=== PATIENT | male | born 1995 | race Caucasian/White ===

== ENCOUNTER 2020-04-13 03:28 | Outpatient (REF) | payer OTHER, SELFPAY ==
[2020-04-13 05:33] LABS: SARS COV2 PCR INHOUSE NEGATIVE (Negative)
== END 2020-04-13 03:29 | disposition home or self-care (01) ==
LOC: HO.LAB 03:28
PROVIDERS: Visit Provider Internal Medicine
DX: Z20.828 Contact with and (suspected) exposure to other viral communicable diseases (principal)
CPT/HCPCS: 87635

== ENCOUNTER 2020-04-15 07:06 | Outpatient (REF) | payer OTHER, SELFPAY ==
[2020-04-15 07:33] LABS: COVID-19 Test Negative (Negative)
== END 2020-04-15 07:07 | disposition home or self-care (01) ==
LOC: HO.LAB 07:06
PROVIDERS: Visit Provider Internal Medicine
DX: Z20.828 Contact with and (suspected) exposure to other viral communicable diseases (principal)
CPT/HCPCS: 87635

== ENCOUNTER 2020-04-19 06:34 | Outpatient (REF) | payer OTHER, SELFPAY ==
[2020-04-19 06:57] LABS: COVID-19 Test Negative (Negative)
== END 2020-04-19 06:35 | disposition home or self-care (01) ==
LOC: HO.LAB 06:34
PROVIDERS: Visit Provider Internal Medicine
DX: Z20.828 Contact with and (suspected) exposure to other viral communicable diseases (principal)
CPT/HCPCS: 87635

== ENCOUNTER 2020-06-17 21:23 | Outpatient (REF) | payer OTHER, SELFPAY ==
--- NOTE | 2020-06-17 | XR_ITS ---
EXAMINATION: XR KNEE, RIGHT CLINICAL INFORMATION: Pain, history of dislocation. COMPARISON: None TECHNIQUE: Two views of the right knee. FINDINGS: Normal alignment. No fracture or dislocation. Joint spaces are maintained. No significant effusion. XR/XR knee RT 2V IMPRESSION: No evidence of acute osseous abnormality.
== END 2020-06-17 21:24 | disposition home or self-care (01) ==
LOC: HO.XRAY 21:23
PROVIDERS: PCP Internal Medicine; Visit Provider Nurse Practitioner Family
DX: M25.561 Pain in right knee (principal)
CPT/HCPCS: 73560

== ENCOUNTER 2020-07-16 02:38 | Outpatient (REF) | payer OTHER, SELFPAY ==
[2020-07-16 03:09] LABS: COVID-19 Test Negative (Negative); IDNOW Serial# 9DD0AD1C
== END 2020-07-16 02:39 | disposition home or self-care (01) ==
LOC: HO.EMPCOV 02:38
PROVIDERS: PCP Internal Medicine; Visit Provider Internal Medicine
DX: Z20.822 Contact with and (suspected) exposure to COVID-19 (principal)
CPT/HCPCS: 36415; 87635

== ENCOUNTER 2020-07-24 10:33 | Outpatient (REF) | payer OTHER, SELFPAY ==
[2020-07-24 10:50] LABS: COVID-19 Test Negative (Negative)
== END 2020-07-24 10:34 | disposition home or self-care (01) ==
LOC: HO.EMPCOV 10:33
PROVIDERS: Visit Provider Internal Medicine
DX: Z20.822 Contact with and (suspected) exposure to COVID-19 (principal)
CPT/HCPCS: 36415; 87635; C9803

== ENCOUNTER 2020-08-26 10:57 | Outpatient (REF) | payer OTHER, SELFPAY ==
[2020-08-26 11:29] LABS: COVID-19 Test Negative (Negative); IDNOW Serial# 9DD0AD1C
== END 2020-08-26 10:58 | disposition home or self-care (01) ==
LOC: HO.LAB 10:57
PROVIDERS: PCP Internal Medicine; Visit Provider Internal Medicine
DX: Z20.822 Contact with and (suspected) exposure to COVID-19 (principal)
CPT/HCPCS: 36415; 87635

== ENCOUNTER 2020-09-05 13:31 | Outpatient (REF) | payer OTHER, SELFPAY ==
[2020-09-05 14:13] LABS: MANUAL DIFF FLAG NO
[2020-09-05 14:19] LABS: Basophils Percent Auto 0.3 % (0-2); Eosinophils Absolute Auto 0.1 X10*3/uL (0.0-0.4); Eosinophils Percent Auto 1.2 % (0-4); Hematocrit 45.7 % (42-52); Hemoglobin 15.6 g/dl (14.0-18.0); Imm Gran Abs Auto 0.07 X10*3/uL (0.00-0.03); Lymphocytes Absolute Auto 2.1 X10*3/uL (1.2-4.9); Lymphocytes Percent Auto 30.9 % (20-40); Mean Corpuscular HGB Conc 34.1 g/dl (31.0-36.0); Mean Corpuscular Hemoglobin 27.8 pg (27.0-33.0); Mean Corpuscular Volume 81.3 fL (80-98); Mean Platelet Volume 10.1 fL (9.4-12.4); Monocytes Absolute Auto 0.5 X10*3/uL (0.1-1.2); Monocytes Percent Auto 7.5 % (2-11); Neutrophils Absolute Auto 4.1 X10*3/uL (2.0-8.3); Neutrophils Percent Auto 59.1 % (45-73); Platelet Count 199 X10*3/uL (160-400); Red Blood Count 5.62 X10*6/uL (4.60-5.80); Red Cell Distribution Width 12.8 % (11.0-16.0); White Blood Count 6.9 X10*3/uL (4.8-10.8)
[2020-09-05 15:05] LABS: Alanine Aminotransferase 59 U/L (0-40); Albumin Level 4.9 g/dL (3.5-5.0); Alkaline Phosphatase 75 U/L (39-117); Anion Gap 13 (12-20); Aspartate Amino Transferase 33 U/L (5-37); Bilirubin Total 0.9 mg/dL (0.0-1.0); Blood Urea Nitrogen 11 mg/dL (9-16); Calcium 9.7 mg/dL (8.4-10.2); Carbon Dioxide 27 mmol/L (22-29); Chloride 103 mmol/L (96-108); Cholesterol 153 mg/dL; Estimated Glomerular Filt Rate > 60; Glucose Fasting 83 mg/dL (60-99); HDL Cholesterol 24 mg/dL; Potassium 4.2 mmol/L (3.3-5.1); Sodium 139 mmol/L (135-145); Total Protein 7.5 g/dL (6.5-8.0); Triglycerides 547 mg/dL
== END 2020-09-05 13:32 | disposition home or self-care (01) ==
LOC: HO.LAB 13:31
PROVIDERS: PCP Internal Medicine; Visit Provider Internal Medicine
DX: Z00.00 Encounter for general adult medical examination without abnormal findings (principal); Z13.220 Encounter for screening for lipoid disorders
CPT/HCPCS: 36415; 80053; 80061; 85025

== ENCOUNTER 2020-09-06 13:59 | Outpatient (REF) | payer OTHER, SELFPAY ==
--- NOTE | ~2020-09-06 | CT_ITS ---
EXAMINATION: CT HEAD WITHOUT CONTRAST CLINICAL INFORMATION: Severely headache. COMPARISON: None TECHNIQUE: Contiguous axial imaging was performed from the skull base to vertex without intravenous administration of contrast. This CT examination was performed using dose optimization techniques as appropriate, variously including the following: *Automated exposure control *Adjustment of mA and/or kV according to patient size (this includes techniques or standardized protocols for targeted exams where dose is matched to indication/reason for exam; i.e. extremities or head) *Use of iterative reconstruction technique DLP: 892 mGy-cm FINDINGS: There is no evidence of acute intracranial hemorrhage or territorial infarction. No abnormal mass effect or midline shift is seen. Nguyen to white matter differentiation is well preserved. No extra-axial fluid collections are identified. The ventricles are normal in size. There is no abnormal attenuation within the brain parenchyma. The osseous structures and soft tissues are normal. The mastoid air cells and visualized portions of the paranasal sinuses are well aerated. CT/CT head/brain wo con IMPRESSION: No acute intracranial process seen.
== END 2020-09-06 14:00 | disposition home or self-care (01) ==
LOC: HO.CT 13:59
PROVIDERS: Visit Provider Internal Medicine
DX: R51.9 Headache, unspecified (principal)
CPT/HCPCS: 70450

== ENCOUNTER 2020-12-09 07:57 | Outpatient (REF) | payer OTHER, SELFPAY ==
[2020-12-09 08:46] LABS: Alanine Aminotransferase 47 U/L (0-40); Albumin Level 4.9 g/dL (3.5-5.0); Alkaline Phosphatase 52 U/L (39-117); Anion Gap 12 (12-20); Aspartate Amino Transferase 29 U/L (5-37); Bilirubin Total 0.8 mg/dL (0.0-1.0); Blood Urea Nitrogen 14 mg/dL (9-16); Calcium 10.1 mg/dL (8.4-10.2); Carbon Dioxide 28 mmol/L (22-29); Chloride 105 mmol/L (96-108); Cholesterol 165 mg/dL; Estimated Glomerular Filt Rate > 60; Glucose Fasting 110 mg/dL (60-99); HDL Cholesterol 26 mg/dL; LDL Cholesterol Calculated 105 mg/dl; Potassium 4.7 mmol/L (3.3-5.1); Sodium 140 mmol/L (135-145); Total Protein 7.2 g/dL (6.5-8.0); Triglycerides 174 mg/dL
[2020-12-09 09:07] LABS: Thyroid Stimulating Hormone 1.39 uIU/mL (0.32-4.0)
== END 2020-12-09 07:58 | disposition home or self-care (01) ==
LOC: HO.LAB 07:57
PROVIDERS: PCP Internal Medicine; Visit Provider Internal Medicine
DX: E78.2 Mixed hyperlipidemia (principal)
CPT/HCPCS: 36415; 80053; 80061; 84443

== ENCOUNTER 2021-10-27 18:33 | Outpatient (REF) | payer OTHER, SELFPAY ==
[2021-10-27 19:23] LABS: MANUAL DIFF FLAG NO
[2021-10-27 19:31] LABS: Basophils Percent Auto 0.5 % (0-2); Eosinophils Absolute Auto 0.1 X10*3/uL (0.0-0.4); Hematocrit 46.7 % (42.0-52.0); Hemoglobin 15.8 g/dl (14.0-18.0); Imm Gran Abs Auto 0.01 X10*3/uL (0.00-0.03); Imm Gran Pct Auto 0.2 % (0.0-0.4); Lymphocytes Absolute Auto 2.3 X10*3/uL (1.2-4.9); Mean Corpuscular HGB Conc 33.8 g/dl (31.0-36.0); Mean Corpuscular Hemoglobin 27.8 pg (27.0-33.0); Mean Corpuscular Volume 82.1 fL (80.0-98.0); Mean Platelet Volume 10.5 fL (9.4-12.4); Monocytes Absolute Auto 0.4 X10*3/uL (0.1-1.2); Monocytes Percent Auto 5.9 % (2-11); Neutrophils Absolute Auto 3.5 x10*3/uL (2.0-8.3); Neutrophils Percent Auto 55.4 % (45-73); Platelet Count 182 X10*3/uL (160-400); Red Blood Count 5.69 X10*6/uL (4.60-5.80); Red Cell Distribution Width 12.7 % (11.0-16.0); White Blood Count 6.2 X10*3/uL (4.8-10.8)
[2021-10-27 19:50] LABS: Alanine Aminotransferase 46 U/L (0-40); Alkaline Phosphatase 61 U/L (39-117); Anion Gap 14 (12-20); Aspartate Amino Transferase 26 U/L (5-37); Bilirubin Direct 0.3 mg/dL (0.0-0.5); Bilirubin Total 0.9 mg/dL (0.0-1.0); Blood Urea Nitrogen 8 mg/dL (9-16); Calcium 10.5 mg/dL (8.4-10.2); Carbon Dioxide 28 mmol/L (22-29); Chloride 103 mmol/L (96-108); Cholesterol 160 mg/dL; Estimated Glomerular Filt Rate > 60; Glucose Random 92 mg/dL (60-115); HDL Cholesterol 29 mg/dL; LDL Cholesterol Calculated 91 mg/dl; Potassium 4.3 mmol/L (3.3-5.1); Sodium 141 mmol/L (135-145); Total Protein 7.7 g/dL (6.5-8.0); Triglycerides 204 mg/dL
[2021-10-27 20:10] LABS: Thyroid Stimulating Hormone 1.48 uIU/mL (0.32-4.0); Vitamin D 25-OH Total 28.2 ng/mL (>30)
[2021-10-27 20:13] LABS: Vitamin B12 677 pg/mL (200-900)
[2021-10-28 06:51] LABS: Estimated Average Glucose 100 mg/dL; Hemoglobin A1c % 5.1 %
== END 2021-10-27 18:34 | disposition home or self-care (01) ==
LOC: HO.LAB 18:33
PROVIDERS: Visit Provider Family Medicine
DX: F41.9 Anxiety disorder, unspecified (principal)
CPT/HCPCS: 36415; 80053; 80061; 82248; 82306; 82607; 83036; 84443; 85025

== ENCOUNTER 2021-11-08 15:33 | Outpatient (REF) | payer OTHER, SELFPAY ==
[2021-11-08 16:23] LABS: COVID-19 Test Negative (Negative)
== END 2021-11-08 15:34 | disposition home or self-care (01) ==
LOC: HO.LAB 15:33
PROVIDERS: PCP Internal Medicine; Visit Provider Physician Assistant
DX: Z20.822 Contact with and (suspected) exposure to COVID-19 (principal)
CPT/HCPCS: 87635

== ENCOUNTER 2022-05-27 16:53 | Inpatient (IN) | payer OTHER, SELFPAY ==
--- NOTE | ~2022-05-27 | CT_ITS ---
EXAMINATION: CT ABDOMEN AND PELVIS WITH CONTRAST CLINICAL INFORMATION: Epigastric pain COMPARISON: None TECHNIQUE: Multidetector volumetric images were obtained from the superior aspect of the liver through the pubic symphysis following administration 85 mL of Omnipaque 350 intravenous contrast. Sagittal and coronal reformatted images were obtained on the technologist's workstation. Oral contrast: No This CT examination was performed using dose optimization techniques as appropriate, variously including the following: *Automated exposure control *Adjustment of mA and/or kV according to patient size (this includes techniques or standardized protocols for targeted exams where dose is matched to indication/reason for exam; i.e. extremities or head) *Use of iterative reconstruction technique DLP: 827 mGy-cm FINDINGS: LUNG BASES: Atelectasis is present at both lung bases as well as in the lingula. Tiny punctate calcified granuloma seen at the right lung base. LIVER, GALLBLADDER, AND BILIARY TREE: The liver is enlarged measuring 20 cm in cephalocaudad dimension and demonstrates decreased attenuation consistent with hepatic steatosis. No focal hepatic lesion or biliary ductal dilatation is present. The gallbladder is unremarkable with no evidence of radiopaque gallstones, gallbladder wall thickening, or obvious pericholecystic inflammatory changes. PANCREAS: Unremarkable. SPLEEN: There is splenomegaly at 13.6 cm. ADRENAL GLANDS: Unremarkable. KIDNEYS AND URETERS: The kidneys are normal in size, shape, and attenuation. No hydronephrosis, hydroureter, or calculi seen. No perinephric stranding. BLADDER: Unremarkable. GASTROINTESTINAL TRACT: The small and large bowel are unremarkable aside from colonic diverticula without diverticulitis. The appendix is unremarkable. ABDOMINAL WALL: No significant hernia is appreciated. LYMPH NODES: Shotty retroperitoneal lymph nodes are seen but there is no adenopathy. VASCULAR: Unremarkable. PELVIC VISCERA: The prostate and seminal vesicles are unremarkable. OSSEOUS STRUCTURES: Unremarkable. CT/CT abdomen pelvis w IV con IMPRESSION: 1. An etiology for the patient's epigastric pain has not been found. 2. Incidental note made of an enlarged fatty liver and mild splenomegaly. Fleischner guidelines were followed.
--- NOTE | 2022-05-27 16:57 | ED.GENADULT ---
HPI - General Adult General Chief complaint: Abdominal Pain Stated complaint: vomiting abd pain Time Seen by Provider: 05/27/22 16:57 Source: patient Mode of arrival: ambulatory Limitations: no limitations History of Present Illness HPI narrative: 27-year-old male history of hypertension not on medication presenting to the emergency department complaints of sudden onset nausea, vomiting, diarrhea, abdominal discomfort, headache since yesterday p.m.. Patient tells me symptoms started suddenly, he has not been able to tolerate anything by mouth, he tells me every time he eats or drinks he has either an nausea, vomiting or diarrhea. Reports he is having episodes of diarrhea every 1-2 hours. Tells me he is having abdominal discomfort in epigastric region, he describes it as an emptiness. Also complaining of a diffuse headache which feels like his typical, patient tells me he has history of headaches and takes daily medications for them. Nonradiating. Tells me his son at home was sick with similar symptoms about a week ago. Patient has no history of abdominal surgeries. 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 Patient denies chest pain, shortness of breath, fevers, chills, weakness, dizziness, vision changes. Patient denies head trauma, not on any blood thinners. NIHSS0 Related Data Allergies Allergy/AdvReac Type Severity Reaction Status Date / Time Unable to Assess Allergy Unverified 05/27/22 16:57 Review of Systems Review of Systems: Constitutional : No Weight loss, No Fever, No Chills ENT/Mouth :? No sore throat, No Rhinorrhea Eyes: No Swelling, No Redness Cardiovascular : No Chest Pain, No SOB, NoEdema Respiratory : No Cough, No Sputum, No Wheezing Gastrointestinal : Positive Nausea, Positive Vomiting, positive Diarrhea, positive abdominal Pain, No Hematochezia, No Melena Genitourinary : No Dysuria, No Urinary Frequency, No Hematuria, No Urgency Musculoskeletal : No joint pain, No Myalgias, No Joint Swelling Skin : No Skin Lesions, No rash Neuro : No Weakness, No Numbness, No Dizziness, No Headache Psych : No Anxiety/Panic, No Depression All other systems reviewed and are negative. Yes all other systems are reviewed and are negative [facility] Past Medical History Attestation statement: The following information was validated with the patient. Source: old records reviewed and nursing notes reviewed Social History Social History Advance Directives: No Advance Directives Information Provided: No Physical Exam ED Vital Signs: Vital Signs - 24 hr 05/27/22 17:02 05/27/22 18:58 05/27/22 20:07 Temperature 98.3 F 98.1 F Pulse Rate 84 82 82 Respiratory Rate 16 20 Blood Pressure 144/76 H 120/71 116/67 Pulse Oximetry 97 95 Oxygen Delivery Method Room Air Room Air 05/27/22 20:08 05/27/22 20:08 05/27/22 21:20 Temperature Pulse Rate 86 103 H 110 H Respiratory Rate 20 Blood Pressure 118/78 103/62 114/69 Pulse Oximetry 97 Oxygen Delivery Method Room Air BMI result Body Mass Index 30.7 Appearance: Alert.? Oriented X3.? No acute distress.? Head: Normocephalic, atraumatic, no step-offs or deformities Eyes: Pupils equal, round and reactive to light.? ENT: Pharynx normal.? Neck: Normal inspection.? Neck supple.? CVS: Normal heart rate and rhythm.? Pulses normal.? Respiratory: No respiratory distress.? Breath sounds normal.? Abdomen: Soft and nontender.? Skin: Skin warm and dry.? Normal skin color.? Normal skin turgor.? Extremities: No lower extremity edema.? No calf ttp. 5/5 strength to bilateral upper and lower extremities Neuro: Oriented X 3.? No motor deficit.? No sensory deficit. CN 2-12 intact. Ambulating w/ steady gait w/ normal coordination. Course Reevaluation(s) Reevaluation #1: Patient's CBC revealing an elevated hemoglobin and hematocrit with an MCV of 82.3, I suspect hemoconcentration is secondary to poor p.o. intake/dehydration. Patient with neutrophil predominance. Chemistry with no acute electrolyte abnormalities requiring intervention. Patient's total bilirubin noted to be 1.9 however patient not tender to palpation of abdomen on exam, likely secondary to acute viral infection. Pending flu/COVID/RSV. Will hydrate patient with at least 2-3 L of IV fluids. Patient tried to get up and got very dizzy had to sit down. Not tolerating PO. Multiple episodes of diarrhea while in the department Time: 17:10 Reevaluation #2: Orthostatics vital signs w/ orthostatic dizziness. UA with elevated specific gravity and protein likely secondary to dehydration. No acute infection however. Patient is still not tolerating anything by mouth. Despite fluids, Zofran, loperamide. He has been having episodes of diarrhea while in the department, feeling weak, dehydrated. Patient has already received 3 L of normal saline. Still feeling dizzy with positional changes. Flu/COVID/RSV pending. Time: 20:56 Reevaluation #3: Influenza negative. Pending CT of the abdomen and pelvis. Patient is still not tolerating p.o.. Will admit patient to hospital for further intervention and treatment likely dehydration from viral infection. Time: 21:43 Medications Administered Discontinued Medications Generic Name Dose Route Start Last Admin Trade Name Freq PRN Reason Stop Dose Admin Sodium Chloride 1,000 mls @ 999 mls/hr 05/27/22 17:00 05/27/22 18:13 Ns IV 05/27/22 18:00 Infused .Q1H1M EMMANUEL Infusion Sodium Chloride 1,000 mls @ 999 mls/hr 05/27/22 17:30 05/27/22 18:12 Ns IV 05/27/22 18:30 999 mls/hr .Q1H1M EMMANUEL Administration Sodium Chloride 1,000 mls @ 999 mls/hr 05/27/22 19:30 05/27/22 20:52 Ns IV 05/27/22 20:30 999 mls/hr .Q1H1M EMMANUEL Administration Iohexol 100 ml 05/27/22 21:38 05/27/22 21:38 Iohexol 350 Mg/Ml 100 Ml Infus..Btl IV 05/27/22 21:39 85 ml ONCE ONE Administration Ketorolac Tromethamine 30 mg 05/27/22 16:57 05/27/22 17:18 Ketorolac Tromethamine 15 Mg/Ml Vial IM 05/27/22 16:58 30 mg ONCE ONE Administration Loperamide HCl 2 mg 05/27/22 17:10 05/27/22 17:18 Loperamide Hcl 2 Mg Capsule PO 05/27/22 17:11 2 mg ONCE ONE Administration Morphine Sulfate 2 mg 05/27/22 20:53 05/27/22 21:21 Morphine Sulfate 2 Mg/Ml Cartridge IVPUSH 05/27/22 20:54 2 mg ONCE ONE Administration Protocol Ondansetron HCl 4 mg 05/27/22 17:01 05/27/22 17:18 Ondansetron Hcl 4 Mg/2 Ml Vial IVPUSH 05/27/22 17:02 4 mg ONCE ONE Administration Medical Decision Making Medical Decision Making [facility] Narrative: 1700 27-year-old male history of hypertension presents with flu-like symptoms since last night a p.m.. Reports nausea, vomiting, diarrhea, abdominal discomfort and headache. Healthcare worker. Physical examination benign. Patient noted to have slightly elevated blood pressure however likely secondary stress/not feeling well. Will repeat blood pressure added later time when patient is no longer having pain in his settles in. NIHSS-0 Concerned for viral infection. No signs of acute abdomen on exam unlikely pancreatitis, cholecystitis, appendicitis, diverticulitis. Headache likely typical headache unlikely intracranial hemorrhage, posterior stroke, meningitis. Diarrhea likely viral, I do not suspect Clostridium difficile. [facility] stroke posterior stroke Plan at this time is basic labs, urine, flu/COVID/RSV.. Will give Imodium for diarrhea. Zofran for nausea vomiting. And I will give Toradol for pain. Critical Care Time Critical Care Time Critical Care Time: No Discharge Plan Discharge Clinical Impression: Acute epigastric pain, Nausea & vomiting, Diarrhea, Acute dehydration, Poor appetite Patient Disposition: Admitted As Inpatient
[2022-05-27 17:02] VITALS: BP 144/76; PULSE 84; RESP 16; TEMP 36.8; O2SAT 97; BMI 30.7
[2022-05-27 17:15] LABS: MANUAL DIFF FLAG NO
[2022-05-27 17:17] LABS: Basophils Percent Auto 0.4 % (0-2); Eosinophils Percent Auto 0.4 % (0-4); Hematocrit 52.6 % (42.0-52.0); Hemoglobin 18.1 g/dl (14.0-18.0); Imm Gran Abs Auto 0.02 X10*3/uL (0.00-0.03); Imm Gran Pct Auto 0.2 % (0.0-0.4); Lymphocytes Absolute Auto 0.8 X10*3/uL (1.2-4.9); Lymphocytes Percent Auto 9.3 % (20-40); Mean Corpuscular HGB Conc 34.4 g/dl (31.0-36.0); Mean Corpuscular Hemoglobin 28.3 pg (27.0-33.0); Mean Corpuscular Volume 82.3 fL (80.0-98.0); Mean Platelet Volume 10.1 fL (9.4-12.4); Monocytes Absolute Auto 0.6 X10*3/uL (0.1-1.2); Monocytes Percent Auto 6.9 % (2-11); Neutrophils Absolute Auto 6.7 x10*3/uL (2.0-8.3); Neutrophils Percent Auto 82.8 % (45-73); Platelet Count 178 X10*3/uL (160-400); Red Blood Count 6.39 X10*6/uL (4.60-5.80); White Blood Count 8.1 X10*3/uL (4.8-10.8)
[2022-05-27] MEDS: 0.9 % Sodium Chloride 1,000 ML 999 ML IV ×3 (17:18→20:52)
[2022-05-27] MEDS: Loperamide HCl 2 MG CAPSULE PO (17:18)
[2022-05-27] MEDS: ondansetron HCL 4 MG/2 ML VIAL IVPUSH (17:18)
[2022-05-27] MEDS: Ketorolac Tromethamine 15 MG/ML VIAL 30 MG IM (17:18)
[2022-05-27 17:32] LABS: Alanine Aminotransferase 65 U/L (0-40); Albumin Level 5.4 g/dL (3.5-5.0); Alkaline Phosphatase 73 U/L (39-117); Anion Gap 16 (12-20); Aspartate Amino Transferase 25 U/L (5-37); Bilirubin Total 1.9 mg/dL (0.0-1.0); Blood Urea Nitrogen 14 mg/dL (9-16); Calcium 10.3 mg/dL (8.4-10.2); Carbon Dioxide 27 mmol/L (22-29); Chloride 103 mmol/L (96-108); Creatinine Clr Calc Pharmacy 115.1; Estimated Glomerular Filt Rate > 60; Glucose Random 108 mg/dL (60-115); Lipase 14 U/L (8-78); Magnesium 1.9 mg/dL (1.6-2.6); Potassium 4.1 mmol/L (3.3-5.1); Sodium 142 mmol/L (135-145); Total Protein 8.2 g/dL (6.5-8.0)
[2022-05-27 18:19] LABS: Appearance Urine Clear; Color Urine Dark Yellow; Glucose Urine UA Negative (Negative); Leukocyte Esterase Urine Trace (Negative); Nitrite Urine Negative (Negative); PH 5.5 (5.0-9.0); Specific Gravity - Urine >= 1.030 (1.005-1.025); UMIC TRIGGER UACC YES; Urine Blood Negative (Negative); Urine Ketones Trace mg/dL (Negative); Urine Protein 30 (1+) mg/dL (Neg-Trace)
[2022-05-27 18:21] LABS: Bacteria Urine None Seen (None Seen); Squamous Epithelial Cell Urine 0-2 /HPF (0-2); WBC Urine 0-5 /HPF (0-5)
--- NOTE | 2022-05-27 18:54 | PC.NURSE ---
Addendum entered by Love Blanchard RN 05/27/22 23:06: report given to DIANDRA Casiano at overflow Addendum entered by Love Blanchard RN 05/27/22 19:00: pt is alert and oriented. breathing equally unlabored c/o abd pain 5/10 no signs of acute distress notice Original Note: report received from DIANDRA Bonds
[2022-05-27 18:58] VITALS: BP 120/71; PULSE 82; RESP 20; TEMP 36.7; O2SAT 95
[2022-05-27 20:07] VITALS: BP 116/67; PULSE 82
[2022-05-27 20:08] VITALS: BP 103/62; BP 118/78; PULSE 103; PULSE 86
--- NOTE | 2022-05-27 20:52 | PC.NURSE ---
medicated per Aug. Notified DIANDRA Aleman
--- NOTE | 2022-05-27 20:55 | ECG_ITS ---
Test Reason : ABD PAIN Blood Pressure : / mmHG Vent. Rate : 079 BPM Atrial Rate : 079 BPM P-R Int : 168 ms QRS Dur : 086 ms QT Int : 366 ms P-R-T Axes : 045 023 018 degrees QTc Int : 419 ms Normal sinus rhythm Nonspecific T wave abnormality Abnormal ECG No previous ECGs available Referred By: Alejandro Sanchez Electronically Signed By:LETTY HONG MD
[2022-05-27 21:16] LABS: Influenza A PCR NEGATIVE (Negative); Influenza B PCR NEGATIVE (Negative); Resp Syncy Virus RNA Qual PCR NEGATIVE (Negative); SARS COV2 PCR INHOUSE NEGATIVE (Negative)
[2022-05-27 21:20] VITALS: BP 114/69; PULSE 110; RESP 20; O2SAT 97
[2022-05-27] MEDS: Morphine Sulfate 2 MG/ML CARTRIDGE IVPUSH (21:21)
[2022-05-27] MEDS: iohexoL 350 MG/ML 100 ML INFUS..BTL IV (21:38)
--- NOTE | 2022-05-27 22:14 | PHA.MEDREC ---
med rec complete, only OTC nexium Pharmacy Consult ? Medication Reconciliation Pharmacy has completed the medication reconciliation.
--- NOTE | 2022-05-27 22:49 | PC.NURSE ---
pt a&o, no increase of sob or chest pain. Report given to Overflow DIANDRA Guevara. Notified DIANDRA Aleman
--- NOTE | 2022-05-27 23:26 | P.HPHOSP_ITS ---
History of Present Illness Date of Service: 05/27/22 Chief Complaint: Abdominal pain, nausea/vomiting This is a 27-year-old male with no pertinent past medical history and not on prescription medications who presents to the emergency department for evaluation of abdominal pain/nausea/vomiting. Patient states it started 24 hours prior to presentation. He had [place] cheese steak for lunch and patient's symptoms started around 20:00. He had multiple episodes of nonbloody emesis and nonbloody loose stools throughout 24 hours without any relieving factors. Also has been having generalized abdominal discomfort. No fever or chills. No history of similar complaints in the past. Does have history of gastroes ophageal reflux disease and takes Nexium but he is without worsening of his acid reflux during these episodes. No history of smoking or chewing marijuana, IV drug use. No alcohol use. 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 States he had 2 episodes of dizziness/lightheadedness when he tried to get up to vomit earlier in the day. No loss of consciousness. Unable to tolerate p.o. intake at home. No chest pain, palpitations, shortness of breath, changes in urinary habits In the emergency department, orthostatic vital signs noted to be positive Review of Systems Constitutional: Constitutional: Reports fatigue Cardiovascular: Cardiovascular: Reports no additional cardiovascular complaints Respiratory: Respiratory: Reports no additional respiratory complaints Gastrointestinal: Gastrointestinal: Reports GI cramping, Reports diarrhea, Reports loose stools, Reports nausea and Reports vomiting Genitourinary: Genitourinary: Reports no additional male genitourinary complaints Endocrine: Endocrine: Reports fatigue PMFSH Functional capacity: independent ambulation Social History Advance Directives: No Advance Directives Information Provided: No Meds Allergies Allergy/AdvReac Type Severity Reaction Status Date / Time Unable to Assess Allergy Unverified 05/27/22 16:57 Active Medications: Current Medications Pharmacy Consult (Consult Rx Perform Med Rec) 1 each MISCELLANE ONCE PRN PRN Reason: Consult order Home Medications Medication Instructions Recorded Confirmed Last Taken Type esomeprazole magnesium 20 mg 20 mg PO DAILY 05/27/22 05/27/22 Unknown History capsule,delayed release (Nexium) Physical Exam Vital Signs and Narrative: Vital Signs: Last Vital Signs Temp 98.1 F 05/27/22 18:58 Pulse 110 H 05/27/22 21:20 Resp 20 05/27/22 21:20 BP 114/69 05/27/22 21:20 Pulse Ox 97 05/27/22 21:20 O2 Del Method 05/27/22 21:20 BMI result Body Mass Index 30.7 Young male lying in bed in no distress Neck supple, no JVD Tachycardic with regular rhythm, S1-S2 heard Regular breath sounds bilaterally, no wheezing or crackles appreciated Abdomen soft nontender, no guarding, no rigidity Patient is awake, alert and oriented to self, place, time and person ; no focal motor deficit Psych: Normal mood No pedal edema Results Labs CBC and Chem 7: 05/27/22 17:10 05/27/22 17:10 Labs: Laboratory Results - last 24 hr 05/27/22 05/27/22 05/27/22 17:10 17:10 18:11 MCV 82.3 MCH 28.3 MCHC 34.4 RDW 13.0 Plt Count 178 MPV 10.1 Immature Gran % (Auto) 0.2 Neut % (Auto) 82.8 H Lymph % (Auto) 9.3 L Sandoval % (Auto) 6.9 Eos % (Auto) 0.4 Baso % (Auto) 0.4 Lymph # (Auto) 0.8 L Sandoval # (Auto) 0.6 Eos # (Auto) 0.0 Baso # (Auto) 0.0 Abs Immat Gran (auto) 0.02 Absolute Neuts (auto) 6.7 Absolute Nucleated RBC 0.000 Nucleated RBC % (auto) 0.0 Anion Gap 16 Estim Creat Clear Calc 115.1 Estimated GFR > 60 Random Glucose 108 Calcium 10.3 H Magnesium 1.9 Total Bilirubin 1.9 H AST 25 ALT 65 H Alkaline Phosphatase 73 Total Creatine Kinase 67 Total Protein 8.2 H Albumin 5.4 H Lipase 14 Urine Color Dark Yellow Urine Appearance Clear Urine pH 5.5 Ur Specific Henderson >= 1.030 H Urine Protein 30 (1+) H Urine Glucose (UA) Negative Urine Ketones Trace Urine Blood Negative Urine Nitrite Negative Ur Leukocyte Esterase Trace H Urine RBC 3-5 H Urine WBC 0-5 Ur Squamous Epith Cells 0-2 Urine Bacteria None Seen Hyaline Casts 3-5 Influenza Type A (PCR) Influenza Type B (PCR) RSV RNA Qual (PCR) SARS-CoV-2 RNA (RT-PCR) 05/27/22 20:12 MCV MCH MCHC RDW Plt Count MPV Immature Gran % (Auto) Neut % (Auto) Lymph % (Auto) Sandoval % (Auto) Eos % (Auto) Baso % (Auto) Lymph # (Auto) Sandoval # (Auto) Eos # (Auto) Baso # (Auto) Abs Immat Gran (auto) Absolute Neuts (auto) Absolute Nucleated RBC Nucleated RBC % (auto) Anion Gap Estim Creat Clear Calc Estimated GFR Random Glucose Calcium Magnesium Total Bilirubin AST ALT Alkaline Phosphatase Total Creatine Kinase Total Protein Albumin Lipase Urine Color Urine Appearance Urine pH Ur Specific Henderson Urine Protein Urine Glucose (UA) Urine Ketones Urine Blood Urine Nitrite Ur Leukocyte Esterase Urine RBC Urine WBC Ur Squamous Epith Cells Urine Bacteria Hyaline Casts Influenza Type A (PCR) NEGATIVE Influenza Type B (PCR) NEGATIVE RSV RNA Qual (PCR) NEGATIVE SARS-CoV-2 RNA (RT-PCR) NEGATIVE Imaging Radiologist's Impressions: Impressions Abdomen/Pelvis CT 05/27/22 21:48 IMPRESSION: 1. An etiology for the patient's epigastric pain has not been found. 2. Incidental note made of an enlarged fatty liver and mild splenomegaly. Fleischner guidelines were followed. Assessment and Plan (1) Nausea & vomiting: Status: Acute (2) Orthostatic dizziness: Status: Acute Plan This is a 27-year-old male with no pertinent past medical history and not on prescription medications who presents to the emergency department for evaluation of abdominal pain/nausea/vomiting. #. Intractable nausea/vomiting and diarrhea -likely viral gastroenteritis. Resuscitated with IV crystalloids in the ER. Symptomatic management for now. Ordered stool studies. If symptoms continue, consider GI consult for possible scope. CT abdomen/pelvis without acute abnormalities. Full liquid diet and advance as tolerated #. Presyncope -due to intravascular volume depletion. Orthostatics positive in the ER. Resuscitated with IV crystalloids. #. Relative polycythemia: Due to above DVT prophylaxis: None. Patient is ambulatory Full code Full liquid diet Quality Stroke Does the patient have a stroke diagnosis?: No VTE Prior VTE?: No VTE Risk Level:: Medical - low VTE Device Contraindication: Treatment Not Indicated VTE Drug Contraindication: Treatment Not Indicated
[2022-05-27] MEDS: 0.9 % Sodium Chloride Flush 3 ML SYRINGE IVFLUSH (23:43)
[2022-05-27] MEDS: Melatonin 3 MG TABLET 6 MG PO (23:43)
[2022-05-28] VITALS: BP 123/76; PULSE 83; RESP 18; TEMP 36.4; O2SAT 95
[2022-05-28 04:54] LABS: Hemoglobin 14.5 g/dl (14.0-18.0); Imm Gran Abs Auto 0.01 X10*3/uL (0.00-0.03); Imm Gran Pct Auto 0.2 % (0.0-0.4); MANUAL DIFF FLAG SCAN; Mean Corpuscular HGB Conc 33.6 g/dl (31.0-36.0); Mean Corpuscular Volume 83.2 fL (80.0-98.0); PLT CLUMP 1; SCAN SMEAR FLAG 1
[2022-05-28 04:56] LABS: Basophils Percent Auto 0.2 % (0-2); Eosinophils Absolute Auto 0.1 X10*3/uL (0.0-0.4); Eosinophils Percent Auto 1.9 % (0-4); Hematocrit 43.1 % (42.0-52.0); Lymphocytes Absolute Auto 1.4 X10*3/uL (1.2-4.9); Lymphocytes Percent Auto 33.5 % (20-40); Mean Platelet Volume 10.4 fL (9.4-12.4); Monocytes Absolute Auto 0.5 X10*3/uL (0.1-1.2); Monocytes Percent Auto 10.7 % (2-11); Neutrophils Absolute Auto 2.3 x10*3/uL (2.0-8.3); Neutrophils Percent Auto 53.5 % (45-73); Red Blood Count 5.18 X10*6/uL (4.60-5.80)
[2022-05-28 04:58] LABS: White Blood Count 4.2 X10*3/uL (4.8-10.8)
[2022-05-28 04:59] LABS: Platelet Count 128 X10*3/uL (160-400)
[2022-05-28 05:11] LABS: Anion Gap 11 (12-20); Blood Urea Nitrogen 12 mg/dL (9-16); Calcium 8.6 mg/dL (8.4-10.2); Carbon Dioxide 27 mmol/L (22-29); Chloride 108 mmol/L (96-108); Creatinine Clr Calc Pharmacy 132.3; Estimated Glomerular Filt Rate > 60; Glucose Random 103 mg/dL (60-115); Potassium 3.9 mmol/L (3.3-5.1); Sodium 142 mmol/L (135-145)
[2022-05-28 05:13] LABS: SLIDE REVIEW VERIFIED
[2022-05-28] MEDS: Acetaminophen 325 MG TABLET 650 MG PO (08:06)
[2022-05-28] MEDS: Omeprazole 20 MG CAPSULE.DR PO (08:06)
[2022-05-28] MEDS: 0.9 % Sodium Chloride Flush 3 ML SYRINGE IVFLUSH (08:06)
[2022-05-28 08:35] VITALS: BP 128/74; PULSE 56; RESP 14; TEMP 36.4; O2SAT 96
--- NOTE | 2022-05-28 09:49 | MHC.CM.PN ---
Meet with patient for CM assessment. Pt A&O x3, employee here. From home, no services prior to d/c. Vax'd, not boosted. Independent @ home. Drove himself here, car in the parking lot. In-between PCP's currently. D/C plan- anticipate home no services.
--- NOTE | 2022-05-28 10:16 | PM.DS ---
DS: Providers Provider Date of Service: 05/28/22 Date of admission: 05/27/22 23:26 Primary care physician: None Physician [facility]ing clinician: Dian Garay DS: Diagnosis Discharge Diagnosis (1) Nausea & vomiting: Status: Acute (2) Orthostatic dizziness: Status: Acute DS: Summary Hospital Course Hospital Course: History and physical as per admitting provider This is a 27-year-old male with no pertinent past medical history and not on prescription medications who presents to the emergency department for evaluation of abdominal pain/nausea/vomiting.? Patient states it started 24 hours prior to presentation.? He had [place] cheese steak for lunch and patient's symptoms started around 20:00.? He had multiple episodes of nonbloody emesis and nonbloody loose stools throughout 24 hours without any relieving factors.? Also has been having generalized abdominal discomfort.? No fever or chills.? No history of similar complaints in the past.? Does have history of gastroesophageal reflux disease and takes Nexium but he is without worsening of his acid reflux during these episodes.? No history of smoking or chewing marijuana, IV drug use.? No alcohol use.? 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 States he had 2 episodes of dizziness/lightheadedness when he tried to get up to vomit earlier in the day.? No loss of consciousness.? Unable to tolerate p.o. intake at home.? No chest pain, palpitations, shortness of breath, changes in urinary habits In the emergency department, orthostatic vital signs noted to be positive Intractable nausea and vomiting with episode of diarrhea secondary to viral gastroenteritis. Treated with IV fluids, symptomatic management, ppi. No further episodes of nausea or vomiting, eating well, patient reports no abdominal pain requesting to be discharged. Continue PPI Presyncope. Had an episode prior to admission due to intravascular volume depletion with positive orthostatic blood pressures. This has resolved with IV fluids. Time Spent with Patient Time attestation: Total time spent providing and/or coordinating discharge services: Discharge coordination time: Greater than 30 minutes Quality: Safe Use of Opioids Does Pt have an Active Cancer Diagnosis on the Problem List?: No Quality: Stroke Does the patient have a stroke diagnosis?: No Physical Exam Vital Signs: Vital Signs: Last Vital Signs Temp 97.5 F 05/28/22 08:35 Pulse 56 05/28/22 08:35 Resp 14 05/28/22 08:35 BP 128/74 05/28/22 08:35 Pulse Ox 96 05/28/22 08:35 O2 Del Method 05/28/22 08:35 BMI result Body Mass Index 30.7 Appearing in no acute distress head is normocephalic atraumatic eyes pupils are PERRLA sclera is anicteric mouth throat mucous membranes are intact and moist neck is supple no lymphadenopathy, no JVD noted lung sounds are clear to auscultation heart regular rate rhythm, clear S1, S2 positive bowel sounds, abdomen is soft, nontender neuro patient is alert x3, no focal deficits DS: Data Data Completed and Pending Labs on day of discharge: Laboratory Results - last 24 hr 05/27/22 05/27/22 05/27/22 17:10 17:10 18:11 WBC 8.1 RBC 6.39 H Hgb 18.1 H Hct 52.6 H MCV 82.3 MCH 28.3 MCHC 34.4 RDW 13.0 Plt Count 178 MPV 10.1 Immature Gran % (Auto) 0.2 Neut % (Auto) 82.8 H Lymph % (Auto) 9.3 L [place] % (Auto) 6.9 Eos % (Auto) 0.4 Baso % (Auto) 0.4 Lymph # (Auto) 0.8 L [place] # (Auto) 0.6 Eos # (Auto) 0.0 Baso # (Auto) 0.0 Abs Immat Gran (auto) 0.02 Absolute Neuts (auto) 6.7 Absolute Nucleated RBC 0.000 Nucleated RBC % (auto) 0.0 Smear Tech's Comments Sodium 142 Potassium 4.1 Chloride 103 Carbon Dioxide 27 Anion Gap 16 BUN 14 Creatinine 1.15 Estim Creat Clear Calc 115.1 Estimated GFR > 60 Random Glucose 108 Calcium 10.3 H Magnesium 1.9 Total Bilirubin 1.9 H AST 25 ALT 65 H Alkaline Phosphatase 73 Total Creatine Kinase 67 Total Protein 8.2 H Albumin 5.4 H Lipase 14 Urine Color Dark Yellow Urine Appearance Clear Urine pH 5.5 Ur Specific [place] >= 1.030 H Urine Protein 30 (1+) H Urine Glucose (UA) Negative Urine Ketones Trace Urine Blood Negative Urine Nitrite Negative Ur Leukocyte Esterase Trace H Urine RBC 3-5 H Urine WBC 0-5 Ur Squamous Epith Cells 0-2 Urine Bacteria None Seen Hyaline Casts 3-5 Influenza Type A (PCR) Influenza Type B (PCR) RSV RNA Qual (PCR) SARS-CoV-2 RNA (RT-PCR) 05/27/22 05/28/22 05/28/22 20:12 04:38 04:38 WBC 4.2 L RBC 5.18 Hgb 14.5 Hct 43.1 MCV 83.2 MCH 28.0 MCHC 33.6 RDW 13.0 Plt Count 128 L D MPV 10.4 Immature Gran % (Auto) 0.2 Neut % (Auto) 53.5 Lymph % (Auto) 33.5 [place] % (Auto) 10.7 Eos % (Auto) 1.9 Baso % (Auto) 0.2 Lymph # (Auto) 1.4 [place] # (Auto) 0.5 Eos # (Auto) 0.1 Baso # (Auto) 0.0 Abs Immat Gran (auto) 0.01 Absolute Neuts (auto) 2.3 Absolute Nucleated RBC 0.000 Nucleated RBC % (auto) 0.0 Smear Tech's Comments VERIFIED Sodium 142 Potassium 3.9 Chloride 108 Carbon Dioxide 27 Anion Gap 11 L BUN 12 Creatinine 1.00 Estim Creat Clear Calc 132.3 Estimated GFR > 60 Random Glucose 103 Calcium 8.6 D Magnesium Total Bilirubin AST ALT Alkaline Phosphatase Total Creatine Kinase Total Protein Albumin Lipase Urine Color Urine Appearance Urine pH Ur Specific [place] Urine Protein Urine Glucose (UA) Urine Ketones Urine Blood Urine Nitrite Ur Leukocyte Esterase Urine RBC Urine WBC Ur Squamous Epith Cells Urine Bacteria Hyaline Casts Influenza Type A (PCR) NEGATIVE Influenza Type B (PCR) NEGATIVE RSV RNA Qual (PCR) NEGATIVE SARS-CoV-2 RNA (RT-PCR) NEGATIVE Discharge Plan Discharge Anticipated Discharge Date/Time: 05/28/22 10:14 Patient Disposition: Home, Self-Care Discharge Diagnosis: Gastroenteritis Referrals: Physician,None [Primary Care Provider] - 1 Week Discharge Medications: Continued esomeprazole magnesium [Nexium] 20 mg Capsule,Delayed Release(Dr/Ec) 20 mg PO DAILY Discharge Orders: Discharge Order (Routine); Ordered 05/28/22 Ordered By: Dian Garay Diet: Advance to usual diet Activity on Discharge: As tolerated Stand Alone Forms: Patient Portal Discharge page Care Plan Goals: Complete resolution of symptoms Health Concerns: Gastroenteritis Plan of Treatment: Follow-up with primary care provider as needed May continue Nexium Assessment: See discharge summary
--- NOTE | 2022-05-28 10:22 | MHC.CM.PN ---
Patient has been medically cleared for dc to home today, self care.
== END 2022-05-28 10:59 | disposition home or self-care (01) | DRG 663 ==
LOC: HO.ED 22:53 → HO.EDOVER 23:33
PROVIDERS: Physician Assistant; Admitting Provider Student in an Organized Health Care Education/Training Program; Emergency Provider Emergency Medicine; PCP Internal Medicine; Visit Provider Nurse Practitioner Acute Care
DX: D75.1 Secondary polycythemia (principal); A08.4 Viral intestinal infection, unspecified; Z20.822 Contact with and (suspected) exposure to COVID-19
CPT/HCPCS: 0241U; 36415; 74177; 80048; 80053; 81001; 82550; 83690; 83735; 85025; 93005; 99284; J1885; J2270; J2405; Q9967

== ENCOUNTER 2022-09-20 10:47 | Outpatient (REF) | payer OTHER, SELFPAY ==
[2022-09-20 11:02] LABS: MANUAL DIFF FLAG NO
[2022-09-20 12:09] LABS: Basophils Percent Auto 0.3 % (0-2); Eosinophils Absolute Auto 0.1 X10*3/uL (0.0-0.4); Eosinophils Percent Auto 1.9 % (0-4); Hematocrit 49.5 % (42.0-52.0); Imm Gran Abs Auto 0.01 X10*3/uL (0.00-0.03); Imm Gran Pct Auto 0.2 % (0.0-0.4); Lymphocytes Absolute Auto 1.8 X10*3/uL (1.2-4.9); Lymphocytes Percent Auto 31.6 % (20-40); Mean Corpuscular HGB Conc 34.3 g/dl (31.0-36.0); Mean Corpuscular Hemoglobin 28.4 pg (27.0-33.0); Mean Corpuscular Volume 82.6 fL (80.0-98.0); Mean Platelet Volume 10.6 fL (9.4-12.4); Monocytes Absolute Auto 0.4 X10*3/uL (0.1-1.2); Monocytes Percent Auto 7.2 % (2-11); Neutrophils Absolute Auto 3.4 x10*3/uL (2.0-8.3); Neutrophils Percent Auto 58.8 % (45-73); Platelet Count 187 X10*3/uL (160-400); Red Blood Count 5.99 X10*6/uL (4.60-5.80); Red Cell Distribution Width 12.6 % (11.0-16.0); White Blood Count 5.8 X10*3/uL (4.8-10.8)
[2022-09-20 12:26] LABS: Estimated Average Glucose 103 mg/dL; Hemoglobin A1C 148.7328 umol/L; Hemoglobin A1c % 5.2 %
[2022-09-20 13:09] LABS: Alanine Aminotransferase 54 U/L (0-40); Albumin Level 4.9 g/dL (3.5-5.0); Alkaline Phosphatase 75 U/L (39-117); Anion Gap 15 (12-20); Aspartate Amino Transferase 25 U/L (5-37); Bilirubin Total 0.8 mg/dL (0.0-1.0); Blood Urea Nitrogen 11 mg/dL (9-16); Calcium 9.7 mg/dL (8.4-10.2); Carbon Dioxide 25 mmol/L (22-29); Chloride 104 mmol/L (96-108); Cholesterol 195 mg/dL; Estimated Glomerular Filt Rate > 60; Glucose Random 117 mg/dL (60-115); HDL Cholesterol 30 mg/dL; LDL Cholesterol Calculated 121 mg/dl; Potassium 4.3 mmol/L (3.3-5.1); Sodium 140 mmol/L (135-145); Total Protein 7.2 g/dL (6.5-8.0); Triglycerides 223 mg/dL
[2022-09-20 13:11] LABS: Folate 6.9 ng/mL (> or = 4.0); Vitamin B12 647 pg/mL (200-900); Vitamin D 25-OH Total 32.4 ng/mL (>30)
== END 2022-09-20 10:48 | disposition home or self-care (01) ==
LOC: HO.LAB 10:47
PROVIDERS: Visit Provider Nurse Practitioner Primary Care
DX: Z00.00 Encounter for general adult medical examination without abnormal findings (principal); F41.9 Anxiety disorder, unspecified; I88.1 Chronic lymphadenitis, except mesenteric; M54.50 Low back pain, unspecified; R74.01 Elevation of levels of liver transaminase levels; R73.09 Other abnormal glucose; E78.2 Mixed hyperlipidemia
CPT/HCPCS: 36415; 80053; 80061; 82306; 82607; 82746; 83036; 84443; 85025

== ENCOUNTER 2023-01-13 21:44 | Outpatient (REF) | payer OTHER, SELFPAY ==
--- NOTE | ~2023-01-13 | XR_ITS ---
EXAMINATION: XR CHEST CLINICAL INFORMATION: Cough COMPARISON: None available. TECHNIQUE: 2 views of the chest were obtained. FINDINGS: Mild degenerative changes in the thoracic spine. No gross pleural effusion. There is no gross pneumothorax. Heart size is normal. Low lung volumes. Bibasilar patchy opacities, left greater than right, are concerning for pneumonia. XR/XR chest 2V IMPRESSION: Bibasilar patchy opacities, left greater than right, are concerning for pneumonia. Recommend follow-up imaging in 4-6 weeks to confirm resolution and exclude underlying pathology. This study was presented today 01/20/2023 at 9:50 AM for interpretation. [facility] staff will provide results to referring provider at this time.
== END 2023-01-13 21:45 | disposition home or self-care (01) ==
LOC: HO.XRAY 21:44
PROVIDERS: Visit Provider Physician Assistant
DX: R05.9 Cough, unspecified (principal)
CPT/HCPCS: 71046

== ENCOUNTER 2023-03-14 02:10 | Outpatient (REF) | payer OTHER, SELFPAY ==
--- NOTE | ~2023-03-14 | XR_ITS ---
EXAMINATION: XR CHEST CLINICAL INFORMATION: Pneumonia both lungs due to infectious organism COMPARISON: 01/20/2023 TECHNIQUE: 2 views of the chest were obtained. FINDINGS: Decreased mild bibasilar opacities, left greater than right, may represent improving pneumonia. Low lung volumes. Heart size is normal. Mild degenerative changes in the thoracic spine. No pleural effusion. There is no gross pneumothorax. XR/XR chest 2V IMPRESSION: Decreased mild bibasilar opacities, left greater than right, may represent improving pneumonia. Low lung volumes limit evaluation. Recommend follow-up to resolution. Repeat view with good inspiratory effort should be considered when patient returns for follow-up.
== END 2023-03-14 02:11 | disposition home or self-care (01) ==
LOC: HO.XRAY 02:10
PROVIDERS: Visit Provider Nurse Practitioner Primary Care
DX: J18.9 Pneumonia, unspecified organism (principal)
CPT/HCPCS: 71046

== ENCOUNTER 2023-12-03 22:16 | Emergency (ER) | payer OTHER, SELFPAY ==
--- NOTE | ~2023-12-03 | CT_ITS ---
EXAMINATION: CT LUMBAR SPINE WITHOUT CONTRAST CLINICAL INFORMATION: Question herniated disc. COMPARISON: MR lumbar spine 07/27/2019. TECHNIQUE: Costuming Supervisor images were obtained. CT imaging of the lumbar spine was performed without contrast. Data was reformatted into multiplanar images at the acquisition workstation. This CT examination was performed using dose optimization techniques as appropriate, variously including the following: *Automated exposure control *Adjustment of mA and/or kV according to patient size (this includes techniques or standardized protocols for targeted exams where dose is matched to indication/reason for exam; i.e. extremities or head) *Use of iterative reconstruction technique DLP; 674 mGy-cm FINDINGS: There is slight retrolisthesis of L5 on S1. Alignment is otherwise normal. Vertebral body heights are preserved. No acute fracture. Intervertebral disc heights are grossly maintained at all levels. Canal patency is not well assessed on this examination due to inherent limitations of CT without intrathecal contrast. Grossly no canal compromise. No foraminal nerve root compression. Limited visualization of the retroperitoneal anatomy reveals no abnormal finding. Psoas and paraspinal muscle groups are grossly symmetric. CT/CT lumbar spine wo IV con IMPRESSION: There is slight retrolisthesis of L5 on S1. Grossly no canal or neuroforaminal compromise. No acute fracture.
[2023-12-03 22:19] VITALS: BP 147/90; PULSE 78; RESP 16; TEMP 36.8; O2SAT 97; BMI 34.9
[2023-12-03] MEDS: Ibuprofen 600 MG TABLET PO (22:25)
[2023-12-03 23:38] VITALS: BP 142/95; PULSE 80; RESP 16; TEMP 36.9; O2SAT 97
--- NOTE | 2023-12-03 23:45 | ED.BACK ---
HPI - Back Pain/Injury General Chief Complaint: Back Pain/Injury Stated Complaint: back injury @ work Time Seen by Provider: 12/03/23 22:31 Source: patient Mode of arrival: ambulatory History of Present Illness ED Provider: Dr Guerrero HPI Narrative: 28-year-old male without significant past medical history presents with onset of pain immediately after attempting patient transfer (very large patient), whereby he was pulling the patient while to other staff members were pushing when the mattress got caught and patient reports that it jerked his back and he has had lower back pain since that time, left greater than right but denies any radiation of pain/numbness/tingling into either lower extremity but states that he has pain wrapping around into his left lower quadrant. Pain is much worse within the 1st 10 minutes after standing from a sitting position, pain does began to improve marginally after that. Related Data Home Medications ?Medication ?Instructions ?Recorded ?Confirmed esomeprazole magnesium 20 mg 20 mg PO DAILY 05/27/22 05/27/22 capsule,delayed release (Nexium) Previous Rx's ?Medication ?Instructions ?Recorded cyclobenzaprine 10 mg tablet 10 mg PO BEDTIME PRN muscle spasm 12/04/23 #5 tabs ketorolac 10 mg tablet 10 mg PO Q6H PRN pain 5 days #20 12/04/23 tabs Allergies Allergy/AdvReac Type Severity Reaction Status Date / Time No Known Allergies Allergy Verified 12/03/23 22:21 Review of Systems Review of Systems: Pertinent positives and negatives as stated in HPI [facility] Past Medical History Source: nursing notes reviewed Social History Social History Advance Directives: No Advance Directives Information Provided: No service: No Current occupational status: employed Physical Exam Vital Signs: Vital Signs: Last Vital Signs Temp 98.5 F 12/03/23 23:38 Pulse 80 12/03/23 23:38 Resp 16 12/03/23 23:38 BP 142/95 H 12/03/23 23:38 Pulse Ox 97 12/03/23 23:38 O2 Del Method Room Air 12/03/23 23:38 BMI result Body Mass Index 34.9 VITAL SIGNS: Reviewed. GENERAL: Well developed, well nourished, in no acute distress. HEAD: Normocephalic/atraumatic EYES: PERRLA, EOMI EARS: Ext canals without abnormality NOSE: Nares patent bilateral OROPHARYNX: no oral lesions noted, posterior pharynx clear NECK: Supple, no adenopathy LUNGS: Normal breath sounds. No adventitious sounds or accessory muscle use. SpO2<97> CARDIOVASCULAR: Regular rate and rhythm without noted murmurs ABDOMEN: Soft, non-tender, non-distended with bowel sounds. BACK: No step-offs noted, straight leg test+ MUSCULOSKELETAL: No tenderness, deformities, or effusions noted on gross inspection. EXTREMITIES: No cyanosis, clubbing or edema. SKIN: Inspection of the skin reveals no rashes NEUROLOGIC: Alert and oriented x 4. Strength and sensation to light touch were grossly intact x 4. Medications Administered Discontinued Medications Generic Name Dose Route Start Last Admin Trade Name Freq PRN Reason Stop Dose Admin Acetaminophen 975 mg 12/03/23 23:39 12/03/23 23:59 Acetaminophen 325 Mg Tablet PO 12/03/23 23:40 975 mg ONCE ONE Administration Ibuprofen 600 mg 12/03/23 22:22 12/03/23 22:25 Ibuprofen 600 Mg Tablet PO 12/03/23 22:23 600 mg ONCE ONE Administration Ketorolac Tromethamine 15 mg 12/03/23 23:39 12/03/23 23:59 Ketorolac Tromethamine 15 Mg/Ml Vial IM 12/03/23 23:40 15 mg ONCE ONE Administration Lidocaine 1 patch 12/03/23 23:39 12/03/23 23:59 Lidocaine 4 % Patch Adh..Patch TRANSDERMA 12/03/23 23:40 1 patch ONCE ONE Administration Protocol Medical Decision Making Medical Decision Making MDM Narrative: 28-year-old male with history and clinical presentation, DDX: Back strain, herniated disc, no clinical concern for cord compression/vertebral fracture Patient received combination analgesics to include lidocaine patch. CT scan demonstrates some retropulsion at L5/S1. Differential Diagnosis Differential Diagnoses: The differential diagnosis associated with the presentation includes Please see the discussion above Admission/Observation Consideration of admission/observation: Escalation of care including admission/observation considered Please see the discussion above Radiology Impression Discussion of test interpretation with radiology: I have reviewed the radiologist's reading. Radiologist Impression: Please see the discussion above Critical Care Time Critical Care Time Critical Care Time: Yes Total Critical Care Time: 30 Attestation: I personally attest to this time spent taking care of the patient. Discharge Plan Discharge Clinical Impression: Back strain Patient Disposition: Home, Self-Care Instructions: Low Back Strain (ED), Lower Back Exercises (ED) Additional Instructions: 1. Tylenol 1000 mg, orally, every 6 hours as needed for pain control. Do not exceed 4000 mg within 24 hours. 2. A prescription for Toradol and muscle relaxer has been sent to your pharmacy. 3. Please follow-up with [facility] tomorrow. Prescriptions: New ketorolac 10 mg tablet 10 mg PO Q6H PRN (Reason: pain) 5 Days Qty: 20 0RF cyclobenzaprine 10 mg tablet 10 mg PO BEDTIME PRN (Reason: muscle spasm) Qty: 5 0RF No Action esomeprazole magnesium [Nexium] 20 mg Capsule,Delayed Release(Dr/Ec) 20 mg PO DAILY Referrals: [facility] [Outside] Miky Ward MD [Primary Care Provider] - Print Language: Arabic
[2023-12-03] MEDS: Ketorolac Tromethamine 15 MG/ML VIAL IM (23:59)
[2023-12-03] MEDS: Acetaminophen 325 MG TABLET 975 MG PO (23:59)
[2023-12-03] MEDS: Lidocaine 4 % Patch ADH..PATCH 1 PATCH TRANSDERMA (23:59)
== END 2023-12-04 01:34 | disposition home or self-care (01) ==
PROVIDERS: Emergency Provider Student in an Organized Health Care Education/Training Program; PCP Internal Medicine
DX: S39.012A Strain of muscle, fascia and tendon of lower back, initial encounter (principal); X50.9XXA Other and unspecified overexertion or strenuous movements or postures, initial encounter; Y93.F2 Activity, caregiving, lifting; Y92.239 Unspecified place in hospital as the place of occurrence of the external cause; Y99.0 Civilian activity done for income or pay
CPT/HCPCS: 72132; 96372; 99283; 99284; J1885

== ENCOUNTER 2023-12-06 10:50 | Emergency (ER) | payer OTHER, SELFPAY ==
[2023-12-06 10:54] VITALS: BP 145/85; PULSE 83; RESP 16; TEMP 36.6; O2SAT 98; BMI 34.9
--- NOTE | 2023-12-06 11:06 | ED_ITS ---
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 Patient was evaluated in our ED after incident, had CT, discharged on Toradol and Cyclobenzaprine without relief. Denies more recent injury/trauma or fall, incontinence/retention, fever, dysuria/hematuria, testicular pain. MD elicited complaint: back pain Related Data Home Medications ?Medication ?Instructions ?Recorded ?Confirmed esomeprazole magnesium 20 mg 20 mg PO DAILY 05/27/22 05/27/22 capsule,delayed release (Nexium) Previous Rx's ?Medication ?Instructions ?Recorded cyclobenzaprine 10 mg tablet 10 mg PO BEDTIME PRN muscle spasm 12/04/23 #5 tabs ketorolac 10 mg tablet 10 mg PO Q6H PRN pain 5 days #20 12/04/23 tabs cyclobenzaprine 10 mg tablet 10 mg PO TID PRN muscle spasm #15 12/06/23 tabs lidocaine 5 % topical patch 1 patch topical DAILY PRN pain #30 12/06/23 (Lidoderm) ea morphine 15 mg immediate release 15 mg PO Q6H PRN pain (scale score 12/06/23 tablet 7-10) 3 days #9 tabs morphine 15 mg immediate release 15 mg PO Q6H PRN pain (scale score 12/06/23 tablet 7-10) 3 days #9 tabs naproxen 500 mg tablet 500 mg PO BID PRN pain 10 days #20 12/06/23 tabs Allergies Allergy/AdvReac Type Severity Reaction Status Date / Time No Known Allergies Allergy Verified 12/06/23 10:57 Review of Systems Review of Systems: Constitutional: No Fever, No Chills ENT/Mouth: No Ear Pain, No Nasal Congestion, No sore throat, No Rhinorrhea, No Swallowing Difficulty Cardiovascular: No Chest Pain, No SOB Respiratory: No Cough, No Sputum Gastrointestinal: No Nausea, No Vomiting, No Diarrhea, No Constipation, No Abdominal pain Genitourinary: No Dysuria, No Hematuria, No Urinary Incontinence/retention, No Flank Pain Musculoskeletal: + joint pain, No Myalgias, No Joint Swelling Skin: No Skin Lesions, No rash Neuro: No Weakness, No Numbness, + Paresthesias Yes all other systems are reviewed and are negative Constitutional: Constitutional: Reports as per HPI Neurologic: Denies Sensory deficit (Neuro) [facility] Past Medical History Attestation statement: The following information was validated with the patient. Source: old records reviewed Social History Social History Advance Directives: No Advance Directives Information Provided: Yes service: No Current occupational status: employed Physical Exam Vital Signs: Vital Signs: Last Vital Signs Temp 98 F 12/06/23 16:04 Pulse 67 12/06/23 16:04 Resp 16 12/06/23 16:04 BP 140/78 H 12/06/23 16:04 Pulse Ox 96 12/06/23 16:04 O2 Del Method Room Air 12/06/23 16:04 BMI result Body Mass Index 34.9 Const: General: cooperative, healthy appearing and no acute distress Orientation/consciousness: patient oriented x3 Limitations: no limitations HEENT: Head: Yes normal to inspection and Yes atraumatic Ears: hearing grossly normal bilaterally General nose exam: Normal external nose present Face and sinus: Yes normal facial exam Eyes: General: appearance normal, both eyes and all related structures EOM: EOMs intact bilaterally Neck: Neck: Yes normal visual inspection and Yes no meningeal signs Resp: Effort & Inspection: normal respiratory effort and no respiratory distress Auscultation: clear to auscultation bilaterally Cardio: Rate: regular rate Heart sounds: S1 normal heart sound present and S2 normal heart sound present GI: Inspection: Yes normal to inspection Palpation (GI): Soft to palpation, nontender, no guarding and not rigid : Other: exam performed by Dr. Boyd & unremarkable General: Yes no CVA tenderness Back/Spine/Pelvis: Other: No midline cervical/thoracic/lumbar spinous tenderness/step-off or deformity. Lumbar spasming and left-sided paraspinal tenderness elicited. Pain mostly elicited on movement. Back: no CVA tenderness Skin: Rashes: no rashes Wounds: no wounds Neuro: Other: Strength intact throughout. No saddle anesthesia. Sensation intact to light touch. Neurovascular intact distally + straight leg raise General: patient oriented x3, tone normal, moves all extremities, no meningeal signs and no focal motor deficits Cranial nerves: Yes CN's II-XII intact bilaterally Gait exam (Neuro): Antalgic gait present Sensory Exam: No Sensory deficit (Neuro) Extrem: General: Yes normal to inspection Course Course Course Narrative: -UA negative -1338--patient is still in immense amount of pain after 4mg of IV morphine. Will order additional 4 mg and re-evaluate -1545--patient has been given multiple doses of IV morphine with improvement in pain. Much more mobile, ambulating with steady gait. Feels comfortable for discharge home. Will discharge home with additional cyclobenzaprine, naproxen, and p.o. morphine with close PCP follow-up. -[facility] out of stock of morphine, prescription sent to [facility] Results discussed with patient including worrisome signs and symptoms and strict return precautions, and when to return to the emergency department. They verbalized understanding and feel safe for discharge at this time. Medications Administered Discontinued Medications Generic Name Dose Route Start Last Admin Trade Name Freq PRN Reason Stop Dose Admin Cyclobenzaprine HCl 10 mg 12/06/23 11:36 12/06/23 11:58 Cyclobenzaprine Hcl 10 Mg Tablet PO 12/06/23 11:37 10 mg ONCE ONE Administration Sodium Chloride 500 mls @ 999 mls/hr 12/06/23 12:30 12/06/23 13:15 Ns IV 12/06/23 13:00 Infused .Q31M EMMANUEL Infusion Ketorolac Tromethamine 30 mg 12/06/23 11:36 12/06/23 11:58 Ketorolac Tromethamine 30 Mg/Ml Vial IM 12/06/23 11:37 30 mg ONCE ONE Administration Lidocaine 1 patch 12/06/23 11:36 12/06/23 11:59 Lidocaine 4 % Patch Adh..Patch TRANSDERMA 12/06/23 11:37 1 patch ONCE ONE Administration Protocol Morphine Sulfate 15 mg 12/06/23 11:36 12/06/23 11:58 Morphine Sulfate Immed Release 15 Mg Tablet PO 12/06/23 11:37 15 mg ONCE ONE Administration Morphine Sulfate 4 mg 12/06/23 12:22 12/06/23 12:39 Morphine Sulfate 4 Mg/Ml Cartridge IVPUSH 12/06/23 12:23 4 mg ONCE ONE Administration Protocol Morphine Sulfate 4 mg 12/06/23 13:37 12/06/23 13:43 Morphine Sulfate 4 Mg/Ml Cartridge IVPUSH 12/06/23 13:38 4 mg ONCE ONE Administration Protocol Morphine Sulfate 2 mg 12/06/23 15:12 12/06/23 15:20 Morphine Sulfate 2 Mg/Ml Cartridge IVPUSH 12/06/23 15:13 2 mg ONCE ONE Administration Protocol Ondansetron HCl 4 mg 12/06/23 12:22 12/06/23 12:39 Ondansetron Hcl 4 Mg/2 Ml Vial IVPUSH 12/06/23 12:23 4 mg ONCE ONE Administration Medical Decision Making Medical Decision Making [facility] Narrative: 28-year-old male with no significant past medical history presenting to the ED complaining of persistent low back pain > left, radiating down bilateral lower extremities and to left groin s/p work-related 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 On exam vital signs stable, NAD, appears uncomfortable/in pain. Visible/palpable muscle spasming. Positive straight leg test. No red flag symptoms or midline spinous tenderness. No saddle anesthesia. Ambulating with antalgic gait. Concern for herniated disc vs spasming vs strain. Low suspicion for cauda equina/cord compression or epidural abscess, or fracture CT reviewed from 12/02. Plan: Pain control. Case discussed with ED attending Dr. Boyd who also evaluated patient and is in agreement with plan Please refer to course for remaining clinical decision making, interpretation of labs/imaging results, and discussions with consultants and/or family members. Differential Diagnosis Differential Diagnoses: The differential diagnosis associated with the presentation includes As above Admission/Observation Consideration of admission/observation: Escalation of care including admission/observation considered Lab Data [facility] Lab Attestation statement: I reviewed the patient's lab results. Labs: Lab Results 12/06/23 Range/Units 12:47 Urine Color Yellow Urine Appearance Clear Urine pH 7.0 (5.0-9.0) Ur Specific [place] 1.010 (1.005-1.025) Urine Protein Negative (Neg-Trace) mg/dL Urine Glucose (UA) Negative (Negative) mg/dL Urine Ketones Negative (Negative) mg/dL Urine Blood Negative (Negative) Urine Nitrite Negative (Negative) Ur Leukocyte Esterase Negative (Negative) Radiology Impression Discussion of test interpretation with radiology: I have reviewed the radiologist's reading. External Record Review External record reviewed: Inpatient record, Office record, Outpatient record, Prior outpatient labs, Prior outpatient radiology, Primary care record and Outside ED record Tests considered The following testing was considered but not selected: As above Prescription Management I considered prescription management with: Pain Medication Critical Care Time Critical Care Time Critical Care Time: Yes Total Critical Care Time: 45 Attestation: I have personally provided critical care time exclusive of time spent on separately billable procedures. Time includes review of lab data, radiology results, discussion with consultants, and monitoring for potential decompensation. Intervention performed as documented. Discharge Plan Discharge Clinical Impression: Lumbar radiculopathy Patient Disposition: Home, Self-Care Instructions: Lumbar Radiculopathy (ED), Lower Back Exercises (ED) Additional Instructions: Flexeril is a muscle relaxer, take 3x daily as needed. do not drive, drink alcohol, or operate machinery while taking it Naproxen as an anti-inflammatory / pain medication, take with food. DO NOT TAKE BOTH NAPROXEN AND TORADOL, ONLY TAKE 1 THERE SIMILAR MEDICATIONS. Lidoderm patches are numbing patches, apply to painful area Morphine as an opiate pain medication, take only when pain is severe for the next [address] or operate anything while taking morphine as well. In addition take Tylenol at home If symptoms persist or worsen, pain becomes unbearable, you developed urinary retention or incontinence, or weakness return to the ED Follow-up with your doctor Prescriptions: New cyclobenzaprine 10 mg tablet 10 mg PO TID PRN (Reason: muscle spasm) Qty: 15 0RF lidocaine [Lidoderm] 5 % adhesive patch,medicated 1 patch topical DAILY MDD remove after 12 hours PRN (Reason: pain) Qty: 30 0 RF Rx Instructions: leave on most painful area for up to 12 hrs morphine 15 mg tablet 15 mg PO Q6H PRN (Reason: pain (scale score 7-10)) 3 Days Qty: 9 0RF Rx Instructions: Partial Fill upon patient request. naproxen 500 mg tablet 500 mg PO BID PRN (Reason: pain) 10 Days Qty: 20 0RF morphine 15 mg tablet 15 mg PO Q6H PRN (Reason: pain (scale score 7-10)) 3 Days Qty: 9 0RF Rx Instructions: Partial Fill upon patient request. No Action esomeprazole magnesium [Nexium] 20 mg Capsule,Delayed Release(Dr/Ec) 20 mg PO DAILY ketorolac 10 mg tablet 10 mg PO Q6H PRN (Reason: pain) 5 Days Qty: 20 0RF cyclobenzaprine 10 mg tablet 10 mg PO BEDTIME PRN (Reason: muscle spasm) Qty: 5 0RF Referrals: [facility] [Outside] Miky Ward MD [Primary Care Provider] - 2 days Stand Alone Forms: Work/School Release Interventions: ED Discharge Assessment Last Done: 12/06/23 16:04 Discharge Date/Time: 12/06/23 16:05 Print Language: Guatemalan
[2023-12-06] MEDS: Cyclobenzaprine HCl 10 MG TABLET PO (11:58)
[2023-12-06] MEDS: Morphine Sulfate Immed Release 15 MG TABLET PO (11:58)
[2023-12-06] MEDS: Ketorolac Tromethamine 30 MG/ML VIAL IM (11:58)
[2023-12-06] MEDS: Lidocaine 4 % Patch ADH..PATCH 1 PATCH TRANSDERMA (11:59)
[2023-12-06] MEDS: Morphine Sulfate 4 MG/ML CARTRIDGE IVPUSH ×2 (12:39→13:43)
[2023-12-06] MEDS: 0.9 % Sodium Chloride 500 ML 999 ML IV (12:39)
[2023-12-06] MEDS: ondansetron HCL 4 MG/2 ML VIAL IVPUSH (12:39)
[2023-12-06 12:54] LABS: Appearance Urine Clear; Color Urine Yellow; Glucose Urine UA Negative (Negative); Leukocyte Esterase Urine Negative (Negative); Nitrite Urine Negative (Negative); Urine Blood Negative (Negative); Urine Ketones Negative (Negative); Urine Protein Negative (Neg-Trace)
[2023-12-06 15:18] VITALS: BP 140/78; PULSE 67; RESP 16; O2SAT 96
[2023-12-06] MEDS: Morphine Sulfate 2 MG/ML CARTRIDGE IVPUSH (15:20)
[2023-12-06 16:04] VITALS: BP 140/78; PULSE 67; RESP 16; TEMP 36.6; O2SAT 96
== END 2023-12-06 16:05 | disposition home or self-care (01) ==
PROVIDERS: Physician Assistant; Emergency Provider Emergency Medicine Emergency Medical Services; PCP Internal Medicine
DX: Z04.2 Encounter for examination and observation following work accident (principal); M54.16 Radiculopathy, lumbar region
CPT/HCPCS: 81003; 96361; 96372; 96374; 96375; 96376; 99284; J1885; J2270; J2405

== ENCOUNTER → 2023-12-08 14:11 | Outpatient (BNVA) | payer OTHER, SELFPAY | PROVIDERS: PCP Internal Medicine; Visit Provider Physician Assistant Medical | DX: Z13.89 Encounter for screening for other disorder (principal) | CPT/HCPCS: 99202 ==

== ENCOUNTER 2023-12-08 15:12 | Outpatient (REF) | payer OTHER, SELFPAY ==
[2023-12-08 15:25] LABS: MANUAL DIFF FLAG NO
[2023-12-08 15:47] LABS: Basophils Percent Auto 0.7 % (0-2); Eosinophils Absolute Auto 0.1 X10*3/uL (0.0-0.4); Eosinophils Percent Auto 2.4 % (0-4); Hemoglobin 16.9 g/dl (14.0-18.0); Imm Gran Abs Auto 0.02 X10*3/uL (0.00-0.03); Imm Gran Pct Auto 0.3 % (0.0-0.4); Lymphocytes Absolute Auto 2.4 X10*3/uL (1.2-4.9); Mean Corpuscular HGB Conc 35.2 g/dl (31.0-36.0); Mean Corpuscular Volume 82.5 fL (80.0-98.0); Mean Platelet Volume 10.1 fL (9.4-12.4); Monocytes Absolute Auto 0.4 X10*3/uL (0.1-1.2); Monocytes Percent Auto 6.6 % (2-11); Platelet Count 185 X10*3/uL (160-400); Red Blood Count 5.82 X10*6/uL (4.60-5.80); Red Cell Distribution Width 13.2 % (11.0-16.0)
[2023-12-08 16:02] LABS: Estimated Average Glucose 94 mg/dL; Hemoglobin A1c % 4.9 % (<6.0)
[2023-12-08 16:30] LABS: Alanine Aminotransferase 44 U/L (0-40); Albumin Level 4.8 g/dL (3.5-5.0); Alkaline Phosphatase 68 U/L (39-117); Anion Gap 14 (12-20); Aspartate Amino Transferase 29 U/L (5-37); Bilirubin Total 0.7 mg/dL (0.0-1.0); Blood Urea Nitrogen 11 mg/dL (9-16); Calcium 9.9 mg/dL (8.4-10.2); Carbon Dioxide 28 mmol/L (22-29); Chloride 104 mmol/L (96-108); Cholesterol 191 mg/dL (<200); Estimated Glomerular Filt Rate > 60; Glucose Random 84 mg/dL (60-115); Potassium 4.6 mmol/L (3.3-5.1); Sodium 141 mmol/L (135-145); Total Protein 7.4 g/dL (6.5-8.0)
[2023-12-08 16:47] LABS: Free T4 (Free Thyroxine) 0.87 ng/dL (0.71-1.85); Thyroid Stimulating Hormone 1.79 uIU/mL (0.32-4.0)
== END 2023-12-08 15:13 | disposition home or self-care (01) ==
LOC: HO.LAB 15:12
PROVIDERS: Visit Provider Internal Medicine
DX: Z00.00 Encounter for general adult medical examination without abnormal findings (principal); E78.1 Pure hyperglyceridemia; E66.09 Other obesity due to excess calories
CPT/HCPCS: 36415; 80053; 82465; 83036; 84439; 84443; 85025

== ENCOUNTER → 2023-12-12 13:14 | Outpatient (BNVA) | payer OTHER, SELFPAY | PROVIDERS: PCP Internal Medicine; Visit Provider Physician Assistant Medical | DX: Z13.89 Encounter for screening for other disorder (principal) | CPT/HCPCS: 99213 ==

== ENCOUNTER → 2023-12-18 08:15 | Outpatient (BNVA) | payer OTHER, SELFPAY | PROVIDERS: PCP Internal Medicine; Visit Provider Physician Assistant Medical | DX: Z13.89 Encounter for screening for other disorder (principal) | CPT/HCPCS: 99213 ==

== ENCOUNTER → 2023-12-29 15:26 | Outpatient (BNVA) | payer OTHER, SELFPAY | PROVIDERS: PCP Internal Medicine; Visit Provider Physician Assistant Medical | DX: Z13.89 Encounter for screening for other disorder (principal) | CPT/HCPCS: 99213 ==

== ENCOUNTER 2024-01-12 13:13 | Outpatient (REF) | payer OTHER, SELFPAY ==
--- NOTE | ~2024-01-12 | MR_ITS ---
EXAMINATION: MR LUMBAR SPINE WITHOUT CONTRAST CLINICAL INFORMATION: Lumbar strain with radiculopathy COMPARISON: MRI of the lumbar spine to 10/11/2019 TECHNIQUE: MRI of the lumbar spine was obtained using routine sequences without contrast. FINDINGS: Trace retrolisthesis of L5 on S1. No suspicious marrow signal or focal osseous lesion. No significant marrow edema. The vertebral body heights are maintained. Disc desiccation and height loss L5-S1. There is also mild disc desiccation at L4-L5. The conus medullaris terminates at the level of L1-L2. The distal spinal cord is normal in appearance. The cauda equina nerve roots appear normal. No significant abnormalities of the paraspinal musculature. Limited evaluation of the intra-abdominal structures without significant abnormalities. The abdominal aorta is of normal contour and caliber. SPINAL LEVELS: L1-L2: No significant spinal canal or neuroforaminal narrowing. L2-L3: No significant spinal canal or neuroforaminal narrowing. L3-L4: No significant spinal canal or neuroforaminal narrowing. New shallow left central disc protrusion. L4-L5: Partial interval resorption of a previous right central disc protrusion with resolution of mass effect on the right L5 nerve root.. There is a residual small central protrusion with annular fissure contributing to mild central spinal canal stenosis. Mild facet arthropathy. No significant neural foraminal narrowing. L5-S1: Trace retrolisthesis. Shallow central disc protrusion. No significant spinal canal or neural foraminal narrowing MR/MR lumbar spine wo con IMPRESSION: 1. At L4-L5, partial interval resorption of a previous right central disc protrusion with resolution of mass effect on the right L5 nerve root. There is a residual small central disc protrusion with annular fissure contributing to mild central spinal canal stenosis at this level. 2. At L3-L4, there is a new shallow left central disc protrusion without significant spinal canal stenosis or neural foraminal narrowing. 3. At L5-S1, there is stable trace retrolisthesis and shallow central disc protrusion without significant spinal canal or neural foraminal narrowing.
== END 2024-01-12 13:14 | disposition home or self-care (01) ==
LOC: HO.MRI 13:13
PROVIDERS: PCP Internal Medicine; Visit Provider Physician Assistant Medical
DX: S39.012D Strain of muscle, fascia and tendon of lower back, subsequent encounter (principal)
CPT/HCPCS: 72148

== ENCOUNTER → 2024-01-13 14:39 | Outpatient (BNVA) | payer OTHER, SELFPAY | PROVIDERS: PCP Internal Medicine; Visit Provider Physician Assistant Medical | DX: Z13.89 Encounter for screening for other disorder (principal) | CPT/HCPCS: 99213 ==

== ENCOUNTER 2024-01-20 09:58 | Outpatient (AMB) | payer OTHER, SELFPAY ==
--- NOTE | 2024-01-20 10:02 | A.OFFVIS_ITS ---
Vital Signs 01/20/24 10:08 Height 5 ft 11 in Weight 255 lb 2 oz BMI 35.6 BP 137/87 Blood Pressure Location Rt brachial Position Sitting Pulse 94 Pulse Source Pulse Oximeter Pulse Oximetry (%) 100 Oxygen Delivery Method Room Air Intake Visit Reasons: Left Lumbar Strain/Central Disc Protrusion Intake Note: Pain today 01/30 Beef Cattle Specialist Required: No Accompanied by: Self / Same As Patient Allergies No Known Allergies Allergy (Verified 12/06/23 10:57) HPI HPI Left Lumbar Strain/Central Disc Protrusion: Details: Patient is a 29 years old male with no pertinent past medical history presents today for initial evaluation of low back pain due to work related injury. Patient works as [employer] at [employer]. 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 He completed CT scan of the lumbar spine and repeat imaging with lumbar spine MRI as noted below. He is currently in physical therapy and notes no significant improvement in his symptoms. Patient reports constant pain with stiffness and tightness in his left low back and into his left buttock and and lateral hip. He reports occasional radicular symptoms into his right leg. Pain is worse with physical therapy, bending, flexing forward, changing positions or prolonged sitting or walking. Pain affects his daily functioning, work, mobility, sleep and social interactions. Denies previous spine surgery or injections. Denies any chills, fever, infection, rash, weakness, bladder or bowel dysfunction or saddle anesth esia. Patient denies any tobacco use, alcohol consumption or illicit/recreational drug use. He drinks 4 cups of coffee per day. Oswestry low back disability score=24 (moderate disability) Location: Lower back pain radiates into left buttock and posterior thigh Duration: 1 month due to work related injury Characteristics of symptom or complaint: Aching, burning, tingling, spasming, freezing, radiating, heavy Aggravating or associated factors: Movement, sitting to standing, bending, prolonged sitting or walking Relieving factors: Heat, morphine, gabapentin,TENS unit Treatment: PT, TENS unit [facility] Medical History (Updated 01/20/24 @ 22:56 by JUANITA Huber) Kidney stones Chronic headaches Social History (Updated 01/20/24 @ 10:11 by Muriel Cruz) Alcohol intake: unknown Patient Tobacco Use Status: Never used Tobacco service: No Current occupational status: employed Review of Systems Const All systems reviewed & are unremarkable except as noted in HPI and below Physical Exam Vital Signs: Last Vital Signs Pulse 94 01/20/24 10:08 BP 137/87 01/20/24 10:08 Pulse Ox 100 01/20/24 10:08 Oxygen Delivery Method Room Air 01/20/24 10:08 BMI result Body Mass Index 35.6 General: Appears afebrile. Alert and oriented. Mood and affect appropriate. Follows and participates in conversation appropriately. Respiratory effort is unlabored. No cough. Able to transition from sit to stand unassisted. Ambulates with bilaterally normal heel strike and toe off. General: Yes no CVA tenderness Back/Spine/Pelvis Other: Patient is able to walk and stand on heels and tip toes with no difficulties demonstrating good motor tone. Slightly antalgic gait without limping. Can flex forward to 65-70 degrees and extend to 5-10 degrees before experiencing lumbar pain, worse pain with forward flexion and bending. Demonstrates 5/5 strength of quadriceps bilaterally as well as flexion/dorsiflexion of bilateral feet against resistance. 2+ pedal pulses bilaterally. Seated and Supine straight leg rise with dorsiflexion positive bilaterally, left>right. +2 left and +1 right patellar and achilles reflexes bilaterally. Facet loading test positive bilaterally. Ambika sign +on the left, Ras?s, Gaenslen, Pelvic compression, SI distraction and Stinchfield tests are positive on the left. No groin pain with I/E hip rotations. Significant paraspinals tenderness on the left mid and lower back. Valsalva maneuver negative. Back: no CVA tenderness Cervical Spine: cervical ROM normal, cervical muscular tenderness and No Cervical spine tenderness Thoracic/Lumbar Spine: thoracic and lumbar spine normal to inspection, No Thoracic/lumbar spine scar(s), Lasegue's sign positive bilateral and diffuse, pain with thoraco-lumbar ROM, paraspinal muscle tenderness, thoraco-lumbar ROM limited, No thoracic spinal tenderness and lumbar spinal tenderness at L3, at L4 and at L5 Pelvis: buttock tenderness on the left and no sciatic notch tenderness Sacroiliac joints: on the right nontender and on the left tender to palpation Results Reviewed Results Reviewed: CT LUMBAR SPINE WITHOUT CONTRAST 12/03/23 CLINICAL INFORMATION: Question herniated disc. COMPARISON: MR lumbar spine 07/27/2019. FINDINGS: There is slight retrolisthesis of L5 on S1. Alignment is otherwise normal. Vertebral body heights are preserved. No acute fracture. Intervertebral disc heights are grossly maintained at all levels. Canal patency is not well assessed on this examination due to inherent limitations of CT without intrathecal contrast. Grossly no canal compromise. No foraminal nerve root compression. Limited visualization of the retroperitoneal anatomy reveals no abnormal finding. Psoas and paraspinal muscle groups are grossly symmetric. IMPRESSION: There is slight retrolisthesis of L5 on S1. Grossly no canal or neuroforaminal compromise. No acute fracture. MR LUMBAR SPINE WITHOUT CONTRAST 01/12/24 CLINICAL INFORMATION: Lumbar strain with radiculopathy COMPARISON: MRI of the lumbar spine to 10/11/2019 TECHNIQUE: MRI of the lumbar spine was obtained using routine sequences without contrast. FINDINGS: Trace retrolisthesis of L5 on S1. No suspicious marrow signal or focal osseous lesion. No significant marrow edema. The vertebral body heights are maintained. Disc desiccation and height loss L5-S1. There is also mild disc desiccation at L4-L5. The conus medullaris terminates at the level of L1-L2. The distal spinal cord is normal in appearance. The cauda equina nerve roots appear normal. No significant abnormalities of the paraspinal musculature. Limited evaluation of the intra-abdominal structures without significant abnormalities. The abdominal aorta is of normal contour and caliber. SPINAL LEVELS: L1-L2: No significant spinal canal or neuroforaminal narrowing. L2-L3: No significant spinal canal or neuroforaminal narrowing. L3-L4: No significant spinal canal or neuroforaminal narrowing. New shallow left central disc protrusion. L4-L5: Partial interval resorption of a previous right central disc protrusion with resolution of mass effect on the right L5 nerve root.. There is a residual small central protrusion with annular fissure contributing to mild central spinal canal stenosis. Mild facet arthropathy. No significant neural foraminal narrowing. L5-S1: Trace retrolisthesis. Shallow central disc protrusion. No significant spinal canal or neural foraminal narrowing IMPRESSION: 1. At L4-L5, partial interval resorption of a previous right central disc protrusion with resolution of mass effect on the right L5 nerve root. There is a residual small central disc protrusion with annular fissure contributing to mild central spinal canal stenosis at this level. 2. At L3-L4, there is a new shallow left central disc protrusion without significant spinal canal stenosis or neural foraminal narrowing. 3. At L5-S1, there is stable trace retrolisthesis and shallow central disc protrusion without significant spinal canal or neural foraminal narrowing. Assessment & Plan Assessment & Plan (1) Lumbar radiculopathy, acute: Code(s): M54.16 - Radiculopathy, lumbar region Category: Medical (2) Lumbar disc herniation: Code(s): M51.26 - Other intervertebral disc displacement, lumbar region Category: Medical (3) Sacroiliac joint pain: Code(s): M53.3 - Sacrococcygeal disorders, not elsewhere classified Category: Medical (4) Low back pain: Code(s): M54.50 - Low back pain, unspecified Category: Medical Plan Schedule bilateral L4-L5 TFESI with local and fluoroscopy for acute radicular and discogenic symptoms consistent with recent MRI findings as noted above. Expectations, risks and benefits were reviewed. Patient is aware he will be contacted to schedule this procedure. Avoid pain producing movements or activities, avoid heavy lifting or strenuous exercise. Continue gentle stretching exercises and physical therapy as tolerated. Refill provided for gabapentin with an increased dose as this has been well tolerated by patient without any side effects. Continue to monitor for any adverse effects. All questions were answered and the patient is in agreement of plan. Follow-up after injections and sooner as needed. Medications: Changed From gabapentin 200 mg (2 x 100 mg) PO BEDTIME 14 caps 0RF M51.26 - Other intervertebral disc displacement, lumbar region, M54.16 - Radiculopathy, lumbar region To gabapentin 300 mg PO BID 30 days 60 caps 0RF pain M51.26 - Other intervertebral disc displacement, lumbar region, M54.16 - Radiculopathy, lumbar region Coding Level of Care Code New Pt Level 4 (75157) Diagnoses Lumbar radiculopathy, acute M54.16 Lumbar disc herniation M51.26 Sacroiliac joint pain M53.3 Low back pain M54.50
[2024-01-20 10:08] VITALS: BP 137/87; PULSE 94; O2SAT 100; BMI 35.6
== END 2024-01-20 10:46 | disposition home or self-care (01) ==
PROVIDERS: PCP Internal Medicine; Referring Provider Physician Assistant Medical; Visit Provider Nurse Practitioner Family
DX: M54.16 Radiculopathy, lumbar region (principal); M51.26 Other intervertebral disc displacement, lumbar region; M53.3 Sacrococcygeal disorders, not elsewhere classified
CPT/HCPCS: 99204

== ENCOUNTER → 2024-01-20 09:58 | Outpatient (BNVA) | payer OTHER, SELFPAY | PROVIDERS: PCP Internal Medicine; Referring Provider Physician Assistant Medical; Visit Provider Nurse Practitioner Family | DX: M54.16 Radiculopathy, lumbar region (principal); M51.26 Other intervertebral disc displacement, lumbar region; M53.3 Sacrococcygeal disorders, not elsewhere classified; M54.50 Low back pain, unspecified | CPT/HCPCS: 99202 ==

== ENCOUNTER → 2024-01-22 11:23 | Outpatient (BNVA) | payer OTHER, SELFPAY | PROVIDERS: PCP Internal Medicine; Visit Provider Physician Assistant Medical | DX: Z13.89 Encounter for screening for other disorder (principal) | CPT/HCPCS: 99213 ==

== ENCOUNTER 2024-01-26 10:00 | Outpatient (RCR) | payer OTHER, SELFPAY ==
--- NOTE | 2023-12-24 12:53 | MHC.PT.EP ---
[facility] Office [place] Office [place] Office [address] Mitchell Renee [address] [phone] F: [phone] F: [phone] F: [phone] F: [phone] Physical Therapy Plan of Care Date of Evaluation: 12/22/23 Date of Surgery: Diagnosis: low back strain with radiculopathy/spasm Assessment: Pt is a 28yo male with subacute low back pain following injury at work. PT exam reveals significant guarding of lumbar paraspinals, abnormal posture with excessive ant pelvic tilt, trunk shift to L during walking and sitting as well as SIJ obliquity. Skilled PT indicated to address these impairments, teach lumbar protection and improve body mechanics while prescribing exercises for core/hip stabilization. Pt in agreement with POC and is motivated to participate. Frequency and Duration: The patient will be seen 2x/weeks, x 4 weeks Short Term Goals: 1. In 2 weeks, patient will be independent with phase 1 HEP. 2. In 2 weeks, patient will demonstrate no pelvic obliquity or trunk lean during gait. 3. In 2 weeks, reduce occurrence of muscle spasms by 50%. Bank Guard Goals: 1. Patient will be able to return to work tasks without limitations in 4 weeks. 2. Pt will improve score on DURGA >= 25% indicating reduced pain and overall improved functional mobility in 4 weeks. 3. Improve rectus abdominus and TA MMT 1/2 grade in 4 weeks. Treatment Plan: Modalities to reduce pain, spasms and effusion. Manual therapy to restore motion and function. Therapeutic exercise to improve strength and flexibility. Neuromuscular re-education for posture and balance. Therapeutic activities to return to functional activities of daily living. Electronically signed by: Zayda Zambrano PT, DPT Please sign and return to therapist. Thank you for your referral.
--- NOTE | 2024-04-28 12:09 | MHC.PT.DC ---
[facility] [place] Office [place] [facility] [place] [facility] [address] [place] Renee [address] [phone] F: [phone] F: [phone] F: [phone] F: [phone] Physical Therapy Discharge Report Diagnosis: low back strain with radiculopathy/spasm Date of Surgery: Date of Evaluation: 12/22/23 Date of Discharge: 03/05/24 Treatments to Date: 4 Cancellations to Date: 2 No Shows to Date: 2 Discharge Status: Improved Function Patient Elected to Stop Visit Non-compliance Discharge Summary: Pt is a 28yo male with subacute low back pain following injury at work. PT exam reveals significant guarding of lumbar paraspinals, abnormal posture with excessive ant pelvic tilt, trunk shift to L during walking and sitting as well as SIJ obliquity. Skilled PT indicated to address these impairments, teach lumbar protection and improve body mechanics while prescribing exercises for core/hip stabilization. Pt in agreement with POC and is motivated to participate. Pt participated in 4 treatment sessions, experienced minor pain relief, application of lumbar traction and TENS for symptom management. Pt did not return following 4th treatment session, D/C at this time due to visit non-compliance. Recommend f/u with MD and continue HEP to manage symptoms. Thank you for this referral. Electronically signed by: Zayda Zambrano PT, DPT Please sign and return to therapist. Thank you for your referral.
== END 2024-04-28 12:10 | disposition home or self-care (01) ==
LOC: HO.PT 10:00
PROVIDERS: PCP Internal Medicine; Visit Provider Physician Assistant Medical
DX: M54.16 Radiculopathy, lumbar region (principal); R25.2 Cramp and spasm
CPT/HCPCS: 97012; 97014; 97110; 97161; 97530

== ENCOUNTER → 2024-01-29 11:27 | Outpatient (BNVA) | payer OTHER, SELFPAY | PROVIDERS: PCP Internal Medicine; Visit Provider Physician Assistant Medical | DX: Z13.89 Encounter for screening for other disorder (principal) | CPT/HCPCS: 99213 ==

== ENCOUNTER → 2024-02-12 11:35 | Outpatient (BNVA) | payer SELFPAY | PROVIDERS: PCP Internal Medicine; Visit Provider Physician Assistant Medical | DX: Z13.89 Encounter for screening for other disorder (principal) | CPT/HCPCS: 99213 ==

== ENCOUNTER → 2024-03-04 11:29 | Outpatient (BNVA) | payer OTHER, SELFPAY | PROVIDERS: PCP Internal Medicine; Visit Provider Physician Assistant Medical | DX: Z13.89 Encounter for screening for other disorder (principal) | CPT/HCPCS: 99213 ==

== ENCOUNTER → 2024-03-11 12:55 | Outpatient (BNVA) | payer OTHER, SELFPAY | PROVIDERS: PCP Internal Medicine; Visit Provider Physician Assistant Medical | DX: Z13.89 Encounter for screening for other disorder (principal) | CPT/HCPCS: 99213 ==

== ENCOUNTER 2024-03-30 06:01 | Outpatient (REF) | payer OTHER, SELFPAY | END 2024-03-30 06:02 | disposition home or self-care (01) | LOC: CF 06:01 | PROVIDERS: Visit Provider Anesthesiology | DX: Z13.89 Encounter for screening for other disorder (principal) ==

== ENCOUNTER 2024-10-29 00:26 | Outpatient (REF) | payer OTHER, SELFPAY ==
[2024-10-29 00:45] LABS: Hematocrit 37.6 % (42.0-52.0); Hemoglobin 13.6 g/dl (14.0-18.0); Mean Corpuscular HGB Conc 36.2 g/dl (31.0-36.0); Mean Corpuscular Hemoglobin 29.4 pg (27.0-33.0); Mean Corpuscular Volume 81.2 fL (80.0-98.0); Mean Platelet Volume 10.3 fL (9.4-12.4); Platelet Count 222 X10*3/uL (160-400); Red Blood Count 4.63 X10*6/uL (4.60-5.80); Red Cell Distribution Width 14.7 % (11.0-16.0); White Blood Count 5.2 X10*3/uL (4.8-10.8)
[2024-10-29 00:59] LABS: C Reactive Protein 0.39 mg/dL (< or = 0.50)
[2024-10-29 01:25] LABS: Erythrocyte Sedimentation Rate 7 MM/HR (0-15)
--- OUTSIDE RECORDS SUMMARY | 2024-11-01 15:30 | XMS_ITS | Clinical Summary ---
Author Organization [facility] Address [address] [place] [address] Care Team Providers Care Insurance Licensing Supervisor Name Role Phone Wesley Abad MD Primary Care Provider [phone] Family History Medical History Relation Name Comments Hypertension Father Relation Name Status Comments Father Social History Tobacco Use Types Packs/Day Years Used Date Smoking Tobacco: Never Smokeless Tobacco: Never Alcohol Use Standard Drinks/Week Comments Not Currently 0 (1 standard drink = 0.6 oz pur e alcohol) Sex and Gender Information Value Date Recorded Sex Assigned at Not on file Gender Identity Not on file Sexual Orientation Not on file Job Start Date Occupation Industry Not on file Not on file Not on file Last Filed Vital Signs Vital Sign Reading Time Taken Comments Blood Pressure 126/79 03/06/2022 9:13 AM EDT Pulse 88 03/06/2022 9:13 AM EDT Temperature - - Respiratory Rate - - Oxygen Saturation 98% 03/06/2022 9:13 AM EDT Inhaled Oxygen Concentration - - Weight - - Height - - Body Mass Index - - Plan of Treatment Health Maintenance Due Date Last Done Comments Hepatitis B Vaccines (1 of 3 - 3-dose series) 1994 Hepatitis C Screening 1994 COVID-19 Vaccine (#1) 1994 Depression Screening 2006 Preventative Health Evaluation 01/06/2012 DTap / Tdap / Td (1 - Tdap) 2013 Influenza Vaccine (#1) 2024 Pneumococcal Vaccine Aged Out No long er eligible based on patient's age to complete this topic RSV Ped < 20 months Aged Out No longe r eligible based on patient's age to complete this topic Care Teams Insurance Licensing Supervisor Relationship Specialty Start Date End Date Wesley Abad MD [address] [facility] [place] [address] PCP - General Family Medicine 11/01/21
--- OUTSIDE RECORDS SUMMARY | 2024-11-01 15:30 | XMS_ITS | Encounter Summary ---
Author Organization [facility] Address [address] [place] [address] Care Team Providers Care Exhibitor Sales Name Role Phone Kisha Tucker APRN Primary Care Provider [phone] Encounter Details Date Type Department Care Team (Late st Contact Info) Description 12/04/2023 Scanned Document [facility] Department of Internal Medicine [place] [address] [facility] [address] [place] [phone] Kisha Tucker APRN [address] [place] [address] Social History Tobacco Use Types Packs/Day Years Used Date Smoking Tobacco: Never Assessed PHQ-2 Answer Date Recorded PHQ-2 Total Score 1 11/01/2022 Sex and Gender Information Value Date Recorded Sex Assigned at Male 11/01/2022 10:19 AM EDT Legal Sex Male 1:47 PM EDT Gender Identity Male 11/01/2022 10:19 AM EDT Sexual Orientation Heterosexual (straight) 11/01 10:19 AM EDT documented as of this encounter Plan of Treatment Not on file documented as of this encounter Visit Diagnoses Not on filedocumented in this encounter Care Teams Exhibitor Sales Relationship Specialty Start Date End Date Kisha Tucker APRN [address] [place] [address] PCP - General Internal Medicine 07/29/22 documented as of this encounter
--- OUTSIDE RECORDS SUMMARY | 2024-11-01 15:30 | XMS_ITS | Encounter Summary ---
Author Organization [facility] Address [address] [place] [address] Care Team Providers Care Investment Banking Analyst Name Role Phone Kisha Tucker APRN Primary Care Provider [phone] Encounter Details Date Type Department Care Team (Late st Contact Info) Description 12/09/2023 Scanned Document [facility] Department of Internal Medicine [place] [address] [facility] [address] [place] [phone] Kisha Tucker APRN [address] [place] [address] Social History Tobacco Use Types Packs/Day Years [...] on filedocumented in this encounter Care Teams Investment Banking Analyst Relationship Specialty Start Date End Date Kisha Tucker APRN [address] [place] [address] PCP - General Internal Medicine 07/29/22 documented as of this encounter
--- OUTSIDE RECORDS SUMMARY | 2024-11-01 15:30 | XMS_ITS | Encounter Summary ---
Author Organization [facility] Address [address] [place] [address] Care Team Providers Care Orthotist Or Prosthetist Name Role Phone Kisha Tucker APRN Primary Care Provider [phone] Encounter Details Date Type Department Care Team (Late st Contact Info) Description 11/21/2022 Scanned Document [facility] Department of Internal Medicine [place] [address] [facility] [address] [place] [address] Kisha Tucker APRN [address] [place] [address] Social History Tobacco Use Types Packs/Day Years [...] on filedocumented in this encounter Care Teams Orthotist Or Prosthetist Relationship Specialty Start Date End Date Kisha Tucker APRN [address] [place] [address] PCP - General Internal Medicine 07/29/22 documented as of this encounter
--- OUTSIDE RECORDS SUMMARY | 2024-11-01 15:30 | XMS_ITS | Encounter Summary ---
Author Organization [facility] Address [address] [place] [address] Care Team Providers Care Prototype Machine Operator Name Role Phone Kisha Tucker APRN Primary Care Provider Encounter Details Date Type Department Care Team (Late st Contact Info) Description 12/09/2023 Scanned Document [facility] Department of Internal Medicine [place] [address] [facility] [address] [place] [phone] Kisha Tucker APRN [address] [place] [address] Social History Tobacco Use Types Packs/Day Years [...] on filedocumented in this encounter Care Teams Prototype Machine Operator Relationship Specialty Start Date End Date Kisha Tucker APRN [address] [place] [address] PCP - General Internal Medicine 07/29/22 documented as of this encounter
--- OUTSIDE RECORDS SUMMARY | 2024-11-01 15:30 | XMS_ITS | Encounter Summary ---
Author Organization [facility] Address [address] [place] [address] Care Team Providers Care Communications Planner Name Role Phone Kisha Tucker APRN Primary Care Provider [phone] Encounter Details Date Type Department Care Team (Late st Contact Info) Description 12/04/2023 Scanned Document [facility] Department of Internal Medicine [place] [address] [facility] [address] [place] [phone] Kisha Tucker APRN [address] [place] [address] Social History Tobacco Use Types Packs/Day Years [...] on filedocumented in this encounter Care Teams Communications Planner Relationship Specialty Start Date End Date Kisha Tucker APRN [address] [place] [address] PCP - General Internal Medicine 07/29/22 documented as of this encounter
--- OUTSIDE RECORDS SUMMARY | 2024-11-01 15:30 | XMS_ITS | Clinical Summary ---
Author Organization [facility] Address [address] [place] [address] Care Team Providers Care Sole Sewer Hand Name Role Phone Kisha Tucker JUANA Primary Care Provider [phone] Allergies No known active allergies Medications methocarbamol (ROBAXIN) 500 MG tablet 03/18/2023 Active cefpodoxime (VANTIN) 200 MG tabletIndication s:Pneumonia of both lungs due to infectious organism, unspecified part of lung Take 1 tablet (200 mg total) by mouth 2 (two) times a day. 20 tablet 03/20/2023 Active sertraline (ZOLOFT) 100 MG tabletIndication s:Anxiety TAKE ONE TABLET BY MOUTH ONCE DAILY 30 tablet 05/03/2023 Active Active Problems Problem Noted Date Diagnosed Date Anxiety 11/01/2022 11/01/2022 Assessment & Plan (11/01/2022 10:48 AM EDT): Stable on seertraline 100mg daily. Will continue. Recommend stress reduction and self care techniques reviewed. BMI 35.0-35.9,adult 11/01/2022 11/01/2022 Left varicocele 11/01/2022 11/01/2022 Assessment & Plan (11/01/2022 10:53 AM EDT): Stable. Recent evaluation by Dr. Michaud of urology. No intervention recommended at this time. Will proceed with watchful waiting/ monitoring. Lower back pain 11/01/2022 11/01/2022 Resolved Problems Problem Noted Date Diagnosed Date Resolved Date Annual physical exam 11/01/2022 11/01/2022 024 Immunizations Immunization Administration Dates Next Due Hepatitis B 03/27/2016 Influenza High-Dose Quadriva lent,(FLUZONE HIGH-DOSE), Perservative Free IM 0.7 mL 65 years and older 04/25/2021 Influenza, Unspecified 03/29/2022 MMR 03/27/2016,02/21/2016 Tdap 06/05/2022,02/14/2016 Social History Tobacco Use Types Packs/Day Years Used Date Smoking Tobacco: Never Assessed PHQ-2 Answer Date Recorded PHQ-2 Total Score 1 11/01/2022 Sex and Gender Information Value Date Recorded Sex Assigned at Male 11/01/2022 10:19 AM EDT Legal Sex Male 1:47 PM EDT Gender Identity Male 11/01/2022 10:19 AM EDT Sexual Orientation Heterosexual (straight) 11/01 10:19 AM EDT Last Filed Vital Signs Vital Sign Reading Time Taken Comments Blood Pressure 130/81 11/01/2022 10:19 AM EDT Pulse 77 11/01/2022 10:19 AM EDT Temperature 36.6 ??C (97.8 ??F) 03/02/2021 2:50 PM ED T Respiratory Rate - - Oxygen Saturation 98% 11/01/2022 10:19 AM EDT Inhaled Oxygen Concentration - - Weight 115 kg (253 lb 12.8 oz) 11/01/2022 10:19 AM EDT Height 180.3 cm (5' 11 ) 11/01/2022 10:19 AM EDT Body Mass Index 35.4 11/01/2022 10:19 AM EDT Plan of Treatment Health Maintenance Due Date Last Done Comments Hepatitis C Virus Screening 1994 HIV Screening 2007 Hepatitis B Vaccines (2 of 3 - 19+ 3-dose series) 04/24/2016 03/27/2016 COVID-19 Vaccine (3 - 2023-2 5 season) 2024 06/05/2022, 04/21/2021 Influenza Vaccine 01/21/2025 03/29/2022, 04/25/2021 DTaP/Tdap/Td Vaccines (3 - T d or Tdap) 06/05/2032 06/05/2022, 02/14/2016 HPV Vaccines Aged Out No longer eligi ble based on patient's age to complete this topic Pneumococcal Vaccine: Pediatric (0-5 Years) and At-Risk Patients (6 to 49 Years) Aged Out No longer eligible b ased on patient's age to complete this topic Insurance [facility] Care Teams Sole Sewer Hand Relationship Specialty Start Date End Date Kisha Tucker APRN [address] [place] [id number] PCP - General Internal Medicine 07/29/22
[2024-11-02 12:19] LABS: Lyme Abs Screen <0.90
== END 2024-10-29 00:27 | disposition home or self-care (01) ==
LOC: HO.LAB 00:26
PROVIDERS: Visit Provider Internal Medicine
DX: Z13.89 Encounter for screening for other disorder (principal)
CPT/HCPCS: 36415; 85027; 85652; 86140; 86617; 86618